=== PATIENT | male | born 1950 | race African-American/Black ===

== ENCOUNTER 2020-02-05 13:43 | Inpatient (IN) | payer MEDICARE ==
--- NOTE | 2020-02-05 14:14 | ED ---
General Adult HPI - General Chief complaint: Upper Respiratory Infection Stated complaint: Pneumonia Time Seen by Provider: 02/05/20 13:45 Source: patient, RN/MD, RN notes reviewed Mode of arrival: ambulatory Limitations: no limitations - History of Present Illness Initial comments: Patient is a pleasant 69-year-old male presenting to the emergency Department as a transfer from [facility]. [place]. Patient had complained of cough and fever and diagnosed with bilateral interstitial pneumonia. Patient states he lives in [place]. Patient states he was driving some place else in [place] and does not know how he ended up in [place]. Patient denies feeling confused. Patient does admit to having cough. Patient also thinks he may have had a fever earlier in the day. No recent travel otherwise. Patient does have leg swelling with history of CHF. Patient was given IV doxycycline and ceftriaxone as well as dexamethasone. Patient was isolated there. They had originally ordered the Covid- 19 test however did not run at because patient was leaving their facility. - Related Data Allergies Allergy/AdvReac Type Severity Reaction Status Date / Time No Known Allergies Allergy Verified 02/05/20 14:00 Review of Systems ROS Statement: Those systems with pertinent positive or pertinent negative responses have been documented in the HPI. ROS Other: All systems not noted in ROS Statement are negative. Constitutional: Reports: as per HPI, fever Eyes: Denies: eye pain ENT: Denies: ear pain Respiratory: Reports: cough. Denies: dyspnea Cardiovascular: Reports: edema. Denies: chest pain Endocrine: Denies: fatigue Genitourinary: Denies: dysuria Musculoskeletal: Denies: back pain Skin: Denies: rash Neurological: Denies: weakness Past Medical History Past Medical History: Coronary Artery Disease (CAD), Heart Failure, Hyperlipidemia, Hypertension Additional Past Medical History / Comment(s): DVT with filter History of Any Multi-Drug Resistant Organisms: None Reported Past Surgical History: Orthopedic Surgery Additional Past Surgical History / Comment(s): IVC filter for blood clots, foot surg Past Psychological History: No Psychological Hx Reported Smoking Status: Former smoker Past Alcohol Use History: None Reported Past Drug Use History: None Reported General Exam Limitations: no limitations General appearance: alert, in no apparent distress Head exam: Present: normocephalic Eye exam: Present: normal appearance, PERRL Neck exam: Present: normal inspection Respiratory exam: Present: rhonchi Cardiovascular Exam: Present: regular rate, normal rhythm GI/Abdominal exam: Present: soft. Absent: tenderness Extremities exam: Present: pedal edema. Absent: calf tenderness Neurological exam: Present: alert, oriented X3, CN II-XII intact. Absent: motor sensory deficit Psychiatric exam: Present: normal affect, normal mood Skin exam: Present: normal color Course Vital Signs 02/05/20 13:47 Temperature 97.8 F Pulse Rate 82 Respiratory 18 Rate Blood Pressure 115/58 O2 Sat by Pulse 96 Oximetry EKG Findings - EKG Comments: EKG Findings:: Sinus rhythm at 87. PVC present. For screening AV block MN of 224. QRS 110. QT 376. QTc 452. Left axis. Septal Q waves. No acute ST change. Medical Decision Making - Medical Decision Making Patient was updated on results and plan. Case was discussed with Dr. Hudson who is aware of concerns and will admit. He is covering for hospital call. - Lab Data Result diagrams: 02/05/20 14:09 02/05/20 14:09 Lab Results 02/05/20 02/05/20 02/05/20 Range/Units 14:09 14:09 14:09 WBC 7.5 (3.8-10.6) k/uL RBC 4.14 L (4.30-5.90) m/uL Hgb 10.0 L (13.0-17.5) gm/dL Hct 33.3 L (39.0-53.0) % MCV 80.5 (80.0-100.0) fL MCH 24.2 L (25.0-35.0) pg MCHC 30.0 L (31.0-37.0) g/dL RDW 20.3 H (11.5-15.5) % Plt Count 213 (150-450) k/uL Neutrophils % 79 % Lymphocytes % 11 % Monocytes % 5 % Eosinophils % 4 % Basophils % 0 % Neutrophils # 5.9 (1.3-7.7) k/uL Lymphocytes # 0.8 L (1.0-4.8) k/uL Monocytes # 0.4 (0-1.0) k/uL Eosinophils # 0.3 (0-0.7) k/uL Basophils # 0.0 (0-0.2) k/uL Hypochromasia Marked Anisocytosis Moderate Microcytosis Slight PT 10.4 (9.0-12.0) sec INR 1.0 (<1.2) APTT 26.3 (22.0-30.0) sec Sodium 140 (137-145) mmol/L Potassium 4.7 (3.5-5.1) mmol/L Chloride 109 H (98-107) mmol/L Carbon Dioxide 25 (22-30) mmol/L Anion Gap 6 mmol/L BUN 48 H (9-20) mg/dL Creatinine 1.45 H (0.66-1.25) mg/dL Est GFR (CKD-EPI)AfAm 56 (>60 ml/min/1.73 sqM) Est GFR (CKD-EPI)NonAf 48 (>60 ml/min/1.73 sqM) Glucose 84 (74-99) mg/dL Plasma Lactic Acid Simone (0.7-2.0) mmol/L Calcium 8.7 (8.4-10.2) mg/dL Total Bilirubin 0.5 (0.2-1.3) mg/dL AST 24 (17-59) U/L ALT 21 (4-49) U/L Alkaline Phosphatase 154 H (38-126) U/L Creatine Kinase 53 L (55-170) U/L Troponin I (0.000-0.034) ng/mL NT-Pro-B Natriuret Pep pg/mL Total Protein 6.0 L (6.3-8.2) g/dL Albumin 3.1 L (3.5-5.0) g/dL Influenza Type A RNA (Not Detectd) Influenza Type B (PCR) (Not Detectd) 02/05/20 02/05/20 02/05/20 Range/Units 14:09 14:09 14:09 WBC (3.8-10.6) k/uL RBC (4.30-5.90) m/uL Hgb (13.0-17.5) gm/dL Hct (39.0-53.0) % MCV (80.0-100.0) fL MCH (25.0-35.0) pg MCHC (31.0-37.0) g/dL RDW (11.5-15.5) % Plt Count (150-450) k/uL Neutrophils % % Lymphocytes % % Monocytes % % Eosinophils % % Basophils % % Neutrophils # (1.3-7.7) k/uL Lymphocytes # (1.0-4.8) k/uL Monocytes # (0-1.0) k/uL Eosinophils # (0-0.7) k/uL Basophils # (0-0.2) k/uL Hypochromasia Anisocytosis Microcytosis PT (9.0-12.0) sec INR (<1.2) APTT (22.0-30.0) sec Sodium (137-145) mmol/L Potassium (3.5-5.1) mmol/L Chloride (98-107) mmol/L Carbon Dioxide (22-30) mmol/L Anion Gap mmol/L BUN (9-20) mg/dL Creatinine (0.66-1.25) mg/dL Est GFR (CKD-EPI)AfAm (>60 ml/min/1.73 sqM) Est GFR (CKD-EPI)NonAf (>60 ml/min/1.73 sqM) Glucose (74-99) mg/dL Plasma Lactic Acid Simone 1.2 (0.7-2.0) mmol/L Calcium (8.4-10.2) mg/dL Total Bilirubin (0.2-1.3) mg/dL AST (17-59) U/L ALT (4-49) U/L Alkaline Phosphatase (38-126) U/L Creatine Kinase (55-170) U/L Troponin I <0.012 (0.000-0.034) ng/mL NT-Pro-B Natriuret Pep 40724 pg/mL Total Protein (6.3-8.2) g/dL Albumin (3.5-5.0) g/dL Influenza Type A RNA (Not Detectd) Influenza Type B (PCR) (Not Detectd) 02/05/20 Range/Units 14:09 WBC (3.8-10.6) k/uL RBC (4.30-5.90) m/uL Hgb (13.0-17.5) gm/dL Hct (39.0-53.0) % MCV (80.0-100.0) fL MCH (25.0-35.0) pg MCHC (31.0-37.0) g/dL RDW (11.5-15.5) % Plt Count (150-450) k/uL Neutrophils % % Lymphocytes % % Monocytes % % Eosinophils % % Basophils % % Neutrophils # (1.3-7.7) k/uL Lymphocytes # (1.0-4.8) k/uL Monocytes # (0-1.0) k/uL Eosinophils # (0-0.7) k/uL Basophils # (0-0.2) k/uL Hypochromasia Anisocytosis Microcytosis PT (9.0-12.0) sec INR (<1.2) APTT (22.0-30.0) sec Sodium (137-145) mmol/L Potassium (3.5-5.1) mmol/L Chloride (98-107) mmol/L Carbon Dioxide (22-30) mmol/L Anion Gap mmol/L BUN (9-20) mg/dL Creatinine (0.66-1.25) mg/dL Est GFR (CKD-EPI)AfAm (>60 ml/min/1.73 sqM) Est GFR (CKD-EPI)NonAf (>60 ml/min/1.73 sqM) Glucose (74-99) mg/dL Plasma Lactic Acid Simone (0.7-2.0) mmol/L Calcium (8.4-10.2) mg/dL Total Bilirubin (0.2-1.3) mg/dL AST (17-59) U/L ALT (4-49) U/L Alkaline Phosphatase (38-126) U/L Creatine Kinase (55-170) U/L Troponin I (0.000-0.034) ng/mL NT-Pro-B Natriuret Pep pg/mL Total Protein (6.3-8.2) g/dL Albumin (3.5-5.0) g/dL Influenza Type A RNA Not Detected (Not Detectd) Influenza Type B (PCR) Not Detected (Not Detectd) - Radiology Data Radiology results: report reviewed (Computed tomography scan of the brain shows some abnormal widening of the [place] interval, correlate to exclude trauma. Local mass effect on the cervical medullary junction), image reviewed (Chest x-ray concerning for numerous multifocal interstitial nebular past days.) Disposition Clinical Impression: Pulmonary infiltrates Disposition: ADMITTED IP TO THIS HOSP Is patient prescribed a controlled substance at d/c from ED?: No Referrals: Nonstaff,Physician [Primary Care Provider] - 1-2 days Decision Time: 16:01
[2020-02-05 14:33] LABS: Anisocytosis Moderate; Basophils % (A) 0 %; Eosinophils # (A) 0.3 k/uL (0-0.7); Eosinophils % (A) 4 %; HCT 33.3 % (39.0-53.0); Hypochromasia Marked; Lymphocytes # (A) 0.8 k/uL (1.0-4.8); Lymphocytes % (A) 11 %; MCH 24.2 pg (25.0-35.0); MCV 80.5 fL (80.0-100.0); Mean Platelet Volume 7.8; Microcytosis Slight; Monocytes # (A) 0.4 k/uL (0-1.0); Monocytes % (A) 5 %; Neutrophils # (A) 5.9 k/uL (1.3-7.7); Neutrophils % (A) 79 %; Platelet Count 213 k/uL (150-450); RBC 4.14 m/uL (4.30-5.90); RDW 20.3 % (11.5-15.5); WBC 7.5 k/uL (3.8-10.6)
[2020-02-05 14:44] LABS: Albumin 3.1 g/dL (3.5-5.0); Calcium 8.7 mg/dL (8.4-10.2); Potassium 4.7 mmol/L (3.5-5.1); Total Bilirubin 0.5 mg/dL (0.2-1.3)
[2020-02-05 14:47] LABS: Partial Thromboplastin Time 26.3 sec (22.0-30.0); Prothrombin Time 10.4 sec (9.0-12.0)
--- NOTE | 2020-02-05 15:32 | XR ---
EXAMINATION TYPE: XR chest 2V DATE OF EXAM: 02/05/2020 COMPARISON: NONE HISTORY: Cough, congestion, and fever TECHNIQUE: Frontal and lateral views of the chest are obtained. FINDINGS: Numerous bilateral patchy opacities are seen throughout. Diffuse interstitial prominence b ilaterally. Cardiomediastinal silhouette is enlarged. Diffuse osseous demineralization. No sizable pl eural effusion. IMPRESSION: Numerous multifocal interstitial and alveolar opacities. Consider multifocal pneumonia, pulmonary hemorrhage, or ARDS. If no interval clearing on follow-up subsequent exams and after treatm ent CT would be recommended to ensure no underlying nodule.
--- NOTE | 2020-02-05 15:38 | CT ---
EXAMINATION TYPE: CT brain wo con DATE OF EXAM: 02/05/2020 COMPARISON: None HISTORY: Altered mental status. CT DLP: 1231.4 mGycm Automated exposure control for dose reduction was used. Head CT performed using departmental protocol FINDINGS: There is abnormal widening of the atlantodens interval, correlate to exclude trauma. There is local m ass effect on the cervical medullary junction region, proximal cervical cord. Inflammatory changes ar e present within the right maxillary sinus. There is cortical atrophy. Cerebral vascular calcificatio ns are present. There is no hemorrhage or hydrocephalus. Encephalomalacia is present in the watershed regions of the posterior parietal lobes left greater than right. Periventricular white matter shows patchy low attenuation. The calvarium is intact, mild inflammatory change in the ethmoid air cells. O rbits show symmetric appearance. Question left frontal cephalohematoma. IMPRESSION: ABNORMAL WIDENING OF THE LATERAL DENS INTERVAL, THERE IS MASS EFFECT ON THE PROXIMAL CERVICAL CORD JU ST DISTAL TO THE CERVICAL MEDULLARY JUNCTION. CHRONIC SMALL VESSEL ISCHEMIC CHANGES, AGE RELATED ATRO PHY. ADDITIONAL FINDINGS ABOVE.
[2020-02-05] MEDS ORDERED: PIPERACILLIN-TAZOBACTAM 3.375 GM in SODIUM CHLORIDE 0.9% 100 ML IVPB STA (16:01)
[2020-02-05] MEDS ORDERED: LEVOFLOXACIN 750MG-D5W PMX 750 MG in DEXTROSE/WATER 1 150ML.BAG IVPB STA (16:01)
[2020-02-05] MEDS ORDERED: PNEUMONIA PROTOCOL UTILIZED 1 EACH MISC PO PRN (16:01)
[2020-02-05 16:19] LABS: Appearance,Urine Clear (Clear); Bilirubin,Urine Negative (Negative); Blood,Urine Negative (Negative); Color,Urine Yellow; Glucose,Urine (UA) Negative (Negative); Ketones,Urine Negative (Negative); Leukocyte Esterase,Urine Negative (Negative); Nitrite,Urine Negative (Negative); Protein,Urine Negative (Negative); Urobilinogen,Urine <2.0 mg/dL (<2.0)
--- NOTE | 2020-02-05 17:50 | P.CNNES ---
History of Present Illness Consult date: 02/05/20 Requesting physician: Pancho Maradiaga Reason for Consult: Altered mental status History of Present Illness: Patient is a 69-year-old male, who was brought to the hospital for altered mental status. Patient apparently lives in [place]. He states that he made a wrong turn, ended up coming to [place], past the [place] border, was taken to hospital, and then transferred back to [facility] and was admitted to [facility]. Neurology was consulted for altered mental status. Patient underwent Computed tomography scan of the head showed abnormal widening of the lateral dense interval, there is mass effect on the proximal cervical cord just distal to the cervical medullary junction. Chronic small vessel ischemic changes, age-related atrophy. Inflammatory changes are present within the right maxillary sinus. Encephalomalacia is present in the watershed region of the posterior parietal lobes left greater than right. Question left frontal cephalohematoma. EKG shows sinus rhythm with first-degree AV block with occasional PVCs and premature atrial complexes. Possible left atrial enlargement. Septal infarct, age undetermined. Chest x-ray showed numerous multifocal interstitial and alveolar opacities. Consider multifocal pneumonia, pulmonary hemorrhage, ARDS. Patient's CBC with WBC 7.5, hemoglobin 10.0, platelets were and 13. PT/PTT normal. Chem-7 with normal electrolytes, BUN 48, creatinine 1.45. Liver functions normal. CPK 53. UA negative, influenza screen negative. Patient had originally undergone Covid-19 testing in [place], however the test was not ran because patient was leaving their facility. Patient denies any numbness tingling, focal weakness. He denies any falls. Denies any neck pain although states that since he has been in the hospital, is laying in odd position, the neck is hurting. Patient denies any history of strokes/CVA. Patient states that he was recently admitted to [facility] about a week ago. They thought he may have a heart failure. Denies headache. He states that he does have difficulty breathing for the last 2 days. Patient denies hypertension, diabetes. He smoked 1 pack per day for 10 years, quit 10 years ago. Denies any alcohol. Patient states that he uses a cane for ambulation for the last 2-3 years. 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 Patient states he has 2 children. Patient states that he has been taking aspiri n 81 mg daily since his admission to the [facility] a week ago. Review of Systems Patient admits to having cough. Patient was diagnosed with bilateral interstit ial pneumonia. Patient has lack swelling with history of CHF. Past Medical History Past Medical History: Coronary Artery Disease (CAD), Heart Failure, Hyperlip idemia, Hypertension Additional Past Medical History / Comment(s): DVT with filter History of Any Multi-Drug Resistant Organisms: None Reported Past Surgical History: Orthopedic Surgery Additional Past Surgical History / Comment(s): IVC filter for blood clots, foot surg Past Psychological History: No Psychological Hx Reported Smoking Status: Former smoker Past Alcohol Use History: None Reported Past Drug Use History: None Reported - Past Family History Mother Family Medical History: Myocardial Infarction (IA) Medications and Allergies Home Medications Medication Instructions Recorded Confirmed Type ALPRAZolam [Xanax] 0.5 mg PO HS PRN 02/05/20 02/05/20 History Albuterol Sulfate [Albuterol 2 puff PO RT-Q4H PRN 02/05/20 02/05/20 History Sulfate Hfa] Allopurinol [Zyloprim] 300 mg PO DAILY 02/05/20 02/05/20 History Aspirin EC [Ecotrin Low Dose] 81 mg PO DAILY 02/05/20 02/05/20 History Atorvastatin [Lipitor] 40 mg PO HS 02/05/20 02/05/20 History Azelastine HCl 1 spray EA NOSTRIL BID 02/05/20 02/05/20 History Furosemide [Lasix] 20 mg PO BID 02/05/20 02/05/20 History HYDROcodone/APAP 10-325MG [[place] 1 tab PO BID PRN 02/05/20 02/05/20 History 10-325] Ipratropium/Albuterol Sulfate 1 puff INHALATION RT-TID 02/05/20 02/05/20 History [Combivent Respimat Inhaler] Metoprolol Succinate (ER) [Toprol 25 mg PO DAILY 02/05/20 02/05/20 History Xl] NIFEdipine XL [Procardia Xl] 60 mg PO DAILY 02/05/20 02/05/20 History Rivaroxaban [Xarelto] 15 mg PO DAILY 02/05/20 02/05/20 History Tamsulosin [Flomax] 0.4 mg PO [id number] 02/05/20 02/05/20 History Allergies Allergy/AdvReac Type Severity Reaction Status Date / Time No Known Allergies Allergy Verified 02/05/20 16:10 Physical Examination - Vital Signs Vital Signs: Vital Signs Temp Pulse Resp BP Pulse Ox 02/05/20 13:47 97.8 F 82 18 115/58 96 Intake and Output 02/05/20 02/05/20 02/05/20 06:59 14:59 22:59 Other: Weight 95.254 kg Patient is an elderly Afro-[place]i male, in no distress distress. Patient states it is February and the year is 2019 although then he corrects it to January 2020. He knows name of the current president and that he lives in [facility]. Speech and language functions are normal. Attention, concentration and fund of knowledge is slightly limited. He did provide some history as above. Patient's face is symmetric. Patient able to move all 4 extremities equally. Patient does have significant peripheral edema, chronic venous congestion changes in the legs. Examination mostly performed through looking at him through the glass window, and communicating through the cellular phone. Results - Laboratory Findings CBC and BMP: 02/06/20 05:45 02/06/20 05:45 Abnormal Lab Findings: Abnormal Labs 02/05/20 02/05/20 14:09 14:09 RBC 4.14 L Hgb 10.0 L Hct 33.3 L MCH 24.2 L MCHC 30.0 L RDW 20.3 H Lymphocytes # 0.8 L Chloride 109 H BUN 48 H Creatinine 1.45 H Alkaline Phosphatase 154 H Creatine Kinase 53 L Total Protein 6.0 L Albumin 3.1 L Assessment and Plan Assessment: * Altered mental status, possible toxic metabolic encephalopathy. 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 Rule out carotid stenosis. * Abnormal widening of the lateral dens with mass effect on the proximal cervical cord. Uncertain cause. ?RA * Abnormal chest x-ray with evidence of bilateral interstitial infiltrates. Rule out CHF versus pneumonia, or Covid-19. Influenza screen negative. * Peripheral edema. Plan: * Obtain records from [facility]. Patient may need tests as below. * Suggest carotid Doppler to rule out carotid stenosis. * 2-D echo to rule out embolic source. * Hemoglobin A1c, fasting a.m. lipid panel. B12, folate, TSH, rheumatoid factor * EEG to rule out any epileptiform activity * Patient may need MRI of the cervical spine for evaluation of abnormality in the dens, noted on CT head. * Your medical management. * Continue aspirin 81 mg daily for stroke prevention.
[2020-02-05] MEDS ORDERED: ACETAMINOPHEN TAB 325 MG TAB PO PRN (18:11)
[2020-02-05] MEDS ORDERED: NALOXONE 0.4 MG/ML 1 ML VIAL IV PRN (18:11)
[2020-02-05 18:22] LABS: Glucose,Whole Blood 93 mg/dL (75-99)
--- NOTE | 2020-02-05 18:27 | P.HPIM ---
History of Present Illness H&P Date: 02/05/20 Chief Complaint: Shortness of breath 69-year-old male with PMH of CAD, DVT with filter, heart failure, hypertension, dyslipidemia presents the ED for shortness of breath. Patient states that the shortness of breath has been ongoing for the past 2 weeks. He denies any cough. He denies any fever or chills. He denies any chest pain or palpitations. According to the ED note, he was apparently diagnosed with bilateral interstitial pneumonia in [place]. Apparently, patient lives in [place] and did not have any clue how he ended up in [place]. Patient did not mention anything about [place] during my encounter with him. Patient denies any headache, lower extremity edema, nausea or vomiting, changes in urination or bowel habits. No changes in appetite or weight. In the ED, vital signs were stable with O2 saturation in the 90s on 4 L nasal cannula. He did have intermittent tachycardia and tachypnea in the ED. CBC shows anemia with hemoglobin of 10 and lymphopenia. Coagulation panel was negative. CMP shows chloride of 109, BUN 48, creatinine 1.45, alkaline phosphatase 154, creatinine kinase 53. Troponin was less than 0.012, EKG showing sinus rhythm with first-degree AV block and PVC. BNP was 10,100 with chest x-ray showing multifocal interstitial and al veolar opacities. Brain CT shows widening of the lateral dens interval, mass effect on the proximal cervical cord? Patient is admitted for shortness of breath, multifocal pneumonia, rule out COVID-19 with neurology, pulmonology and infectious disease on consult. Review of Systems Pertinent positives and negatives as discussed in HPI, a complete review of systems was performed and all other systems are negative. All systems: negative Past Medical History Past Medical History: Coronary Artery Disease (CAD), Heart Failure, Hyperlipidemia, Hypertension Additional Past Medical History / Comment(s): DVT with filter History of Any Multi-Drug Resistant Organisms: None Reported Past Surgical History: Orthopedic Surgery Additional Past Surgical History / Comment(s): IVC filter for blood clots, foot surg Past Psychological History: No Psychological Hx Reported Smoking Status: Former smoker Past Alcohol Use History: None Reported Past Drug Use History: None Reported Medications and Allergies Home Medications Medication Instructions Recorded Confirmed Type ALPRAZolam [Xanax] 0.5 mg PO HS PRN 02/05/20 02/05/20 History Albuterol Sulfate [Albuterol 2 puff PO RT-Q4H PRN 02/05/20 02/05/20 History Sulfate Hfa] Allopurinol [Zyloprim] 300 mg PO DAILY 02/05/20 02/05/20 History Aspirin EC [Ecotrin Low Dose] 81 mg PO DAILY 02/05/20 02/05/20 History Atorvastatin [Lipitor] 40 mg PO HS 02/05/20 02/05/20 History Azelastine HCl 1 spray EA NOSTRIL BID 02/05/20 02/05/20 History Furosemide [Lasix] 20 mg PO BID 02/05/20 02/05/20 History HYDROcodone/APAP 10-325MG [[place] 1 tab PO BID PRN 02/05/20 02/05/20 History 10-325] Ipratropium/Albuterol Sulfate 1 puff INHALATION RT-TID 02/05/20 02/05/20 History [Combivent Respimat Inhaler] Metoprolol Succinate (ER) [Toprol 25 mg PO DAILY 02/05/20 02/05/20 History Xl] NIFEdipine XL [Procardia Xl] 60 mg PO DAILY 02/05/20 02/05/20 History Rivaroxaban [Xarelto] 15 mg PO DAILY 02/05/20 02/05/20 History Tamsulosin [Flomax] 0.4 mg PO AC-[id number] 02/05/20 02/05/20 History Allergies Allergy/AdvReac Type Severity Reaction Status Date / Time No Known Allergies Allergy Verified 02/05/20 16:10 Physical Exam Vitals: Vital Signs Temp Pulse Resp BP Pulse Ox 02/05/20 17:02 93 16 100/63 93 L 02/05/20 16:50 93 16 100/63 93 L 02/05/20 16:40 91 25 H 115/75 100 02/05/20 16:30 90 18 123/75 94 L 02/05/20 16:20 94 19 123/75 02/05/20 16:10 101 H 25 H 116/79 94 L 02/05/20 16:00 90 28 H 115/58 02/05/20 15:50 92 23 115/58 02/05/20 15:40 85 22 115/58 98 02/05/20 15:30 82 15 115/58 97 02/05/20 15:20 93 19 115/58 02/05/20 15:10 115/58 02/05/20 15:00 115/58 02/05/20 14:50 88 19 115/58 96 02/05/20 14:40 93 17 115/58 93 L 02/05/20 14:30 85 21 115/58 97 02/05/20 14:20 84 18 115/58 98 02/05/20 14:13 87 18 115/58 02/05/20 13:47 97.8 F 82 18 115/58 96 Intake and Output 02/05/20 02/05/20 02/05/20 06:59 14:59 22:59 Other: Weight 95.254 kg General: [non toxic], [appears ill], [appears at stated age] Derm: [warm], [dry] Head: [atraumatic], [normocephalic], [symmetric] Eyes: [EOMI], [no lid lag], [anicteric sclera] Mouth: [no lip lesion], [mucus membranes moist] Cardiovascular: [S1S2 reg], [tachycardia], [positive DP pulse bilateral], Lungs: [Decreased breath sounds bilateral], [no rhonchi, no rales] , [no accessory muscle use] Abdominal: [soft], [ nontender to palpation], [no guarding], [no appreciable organomegaly] Ext: [no gross muscle atrophy], [left lower extremity edema], [no contractures] Neuro: [ CN II-XI grossly intact], [no focal neuro deficits] Psych: [Alert], [oriented], [appropriate affect] Results CBC & Chem 7: 02/05/20 14:09 02/05/20 14:09 Labs: Abnormal Lab Results - Last 24 Hours (Table) 02/05/20 02/05/20 Range/Units 14:09 14:09 RBC 4.14 L (4.30-5.90) m/uL Hgb 10.0 L (13.0-17.5) gm/dL Hct 33.3 L (39.0-53.0) % MCH 24.2 L (25.0-35.0) pg MCHC 30.0 L (31.0-37.0) g/dL RDW 20.3 H (11.5-15.5) % Lymphocytes # 0.8 L (1.0-4.8) k/uL Chloride 109 H (98-107) mmol/L BUN 48 H (9-20) mg/dL Creatinine 1.45 H (0.66-1.25) mg/dL Alkaline Phosphatase 154 H (38-126) U/L Creatine Kinase 53 L (55-170) U/L Total Protein 6.0 L (6.3-8.2) g/dL Albumin 3.1 L (3.5-5.0) g/dL Assessment and Plan Assessment: Acute hypoxic respiratory failure likely due to pneumonia versus COVID19 Sepsis likely due to the above Acute metabolic encephalopathy likely due to the above Normocytic anemia with lymphopenia Acute kidney injury CAD COPD Hypertension History of PE with IVC filter Patient's chest x-ray shows multifocal pneumonia with alveolar opacities. There are concerns for COVID 19 infection. He is on 4 L nasal cannula saturating 90s. BNP was 10,100 with history of CHF, patient appears euvolemic. Influenza negative. Plans: Empiric treatment for community-acquired pneumonia with levofloxacin and Zosyn. Supplemental O2 per NC to maintain O2 saturation greater than 92%. Tylenol as needed for fever. Telemetry monitoring. Follow sputum cultures. Follow blood culture. Avoid NSAIDs. Follow pro-calcitonin. Follow pulmonology consultation. Follow ID consultation. Patient meets sepsis criteria care. He is tachycardic. He is tachypneic. He is lymphopenic. There is a positive source of infection on chest x-ray. Lactic acid was negative. Plans: Patient is hemodynamically stable and does not require IVF as of now. He is on levofloxacin and Zosyn for empiric treatment of community acquired pneumonia. COVID testing is pending. Management as above. CT brain showing abnormal widening of the lateral dens interval, possible mass effect on the proximal cervical cord. Patient appears alert and oriented 3 at this time. Plans: Follow neurology consultation. Fall precautions. His hemoglobin is 10 and normocytic. He is also lymphopenic. Plans: Daily CBC. Transfuse if hemoglobin less than 7. BUN 48, creatinine 1.45. Unknown baseline. Plans: We'll repeat BMP tomorrow morning. Encourage hydration by mouth. Avoid IVF for now. Avoid nephrotoxins. Plans: Continue aspirin and Lipitor. Plans: Avoid steroids. Albuterol neb as needed for shortness of breath and wheezing. Plans: Continue metoprolol and nifedipine. Monitor vitals, justifications as necessary. Plans: Continue Xarelto. DVT prophylaxis: [Xarelto] Discussed with: [Patient] Anticipated discharge: [3-4 days] Anticipated discharge place: [Home] A total of [45] minutes was spent on the care of this complex patient more than 50% of the time was spent in counseling and care coordination. Patient is admitted for anticipated greater than 48 hours for multifocal pneumonia rule out COVID19. Patient does not have a surrogate decision maker. Patient would like to be full code.
[2020-02-05 18:36] LABS: C Reactive Protein 135.4 mg/L (<10.0)
[2020-02-05] MEDS ORDERED: LORazepam 2 MG/ML INJ IV PRN (18:54)
[2020-02-05] MEDS ORDERED: LORazepam 2 MG/ML INJ IV STA (18:59)
[2020-02-05] MEDS: ASPIRIN 81 MG PO SCH (19:02)
[2020-02-05] MEDS ORDERED: ALBUTEROL NEBULIZED 2.5 MG/3 ML INHALATION PRN (19:03)
[2020-02-05] MEDS: ATORVASTATIN 40 MG TAB PO SCH (21:55)
[2020-02-05 22:57] LABS: Folate, Serum 8.8 ng/mL
[2020-02-05 23:27] LABS: Hemoglobin A1C 5.5 % (4.0-6.0)
[2020-02-06] MEDS: PIPERACILLIN-TAZOBACTAM 3.375 GM in SODIUM CHLORIDE 0.9% 100 ML IVPB SCH ×3 (01:05→16:45)
[2020-02-06] MEDS: HYDROcodone/APAP 5-325MG 1 EACH TAB PO PRN ×2 (01:06→16:44)
[2020-02-06 06:25] LABS: Anisocytosis Slight; Basophils % (A) 0 %; Eosinophils # (A) 0.3 k/uL (0-0.7); Eosinophils % (A) 4 %; HCT 33.2 % (39.0-53.0); HGB 9.9 gm/dL (13.0-17.5); Hypochromasia Marked; Lymphocytes % (A) 13 %; MCH 24.2 pg (25.0-35.0); MCHC 29.9 g/dL (31.0-37.0); MCV 81.1 fL (80.0-100.0); Mean Platelet Volume 7.7; Microcytosis Slight; Monocytes # (A) 0.5 k/uL (0-1.0); Monocytes % (A) 6 %; Neutrophils # (A) 6.1 k/uL (1.3-7.7); Neutrophils % (A) 76 %; Platelet Count 219 k/uL (150-450); RBC 4.09 m/uL (4.30-5.90); RDW 19.9 % (11.5-15.5)
[2020-02-06 06:31] LABS: Calcium 8.5 mg/dL (8.4-10.2); Magnesium 2.4 mg/dL (1.6-2.3); Potassium 4.8 mmol/L (3.5-5.1); Total Bilirubin 0.7 mg/dL (0.2-1.3)
[2020-02-06] MEDS: TAMSULOSIN 0.4 MG CAP.ER.24H PO SCH (06:31)
--- NOTE | 2020-02-06 07:15 | XR ---
EXAMINATION TYPE: XR chest 1V portable DATE OF EXAM: 02/06/2020 COMPARISON: 02/05/2020 HISTORY: Pneumonia. Shortness of breath. TECHNIQUE: Single frontal view of the chest is obtained. FINDINGS: Multifocal alveolar opacities in the right midlung, right lung base and left perihilar reg ion are seen with diffuse interstitial airspace disease. Minimal improvement of the left upper lobe a lveolar airspace disease. Trace right pleural effusion has developed. Cardiomediastinal silhouette is enlarged and rotated secondary to patient positioning. No acute osseous process. IMPRESSION: Minimal improvement in the left upper lobe alveolar airspace disease. Other multifocal a reas of alveolar and interstitial airspace disease are unchanged from the prior. Findings are concern ing for multifocal pneumonia or ARDS.
[2020-02-06] MEDS: RIVAROXABAN 15 MG TAB PO SCH (08:54)
[2020-02-06] MEDS: METOPROLOL SUCCINATE (ER) 25 MG TAB.ER.24H PO SCH (08:54)
[2020-02-06] MEDS: ASPIRIN 81 MG PO SCH (08:54)
[2020-02-06] MEDS ORDERED: ASCORBIC ACID INJ 1,500 MG in SODIUM CHLORIDE 0.9% 100 ML IVPB SCH (09:00)
[2020-02-06] MEDS ORDERED: THIAMINE 200 MG in SODIUM CHLORIDE 0.9% 100 ML IVPB SCH (09:00)
[2020-02-06 12:09] LABS: Glucose,Whole Blood 79 mg/dL (75-99)
--- NOTE | 2020-02-06 12:13 | ECHOF ---
Referral Reason:SOB MEASUREMENTS -------- HEIGHT: 190.5 cm WEIGHT: 92.1 kg BP: RVIDd: 4.1 cm (< 3.3) IVSd: 1.8 cm (0.6 - 1.1) LVIDd: 5.7 cm (3.9 - 5.3) LVPWd: 1.6 cm (0.6 - 1.1) IVSs: 2.3 cm LVIDs: 4.6 cm LVPWs: 2.0 cm LA Diam: 5.3 cm (2.7 - 3.8) LAESV Index (A-L): 42.78 ml/m Ao Diam: 4.2 cm (2.0 - 3.7) AV Cusp: 2.0 cm (1.5 - 2.6) MV EXCURSION: 14.577 mm (> 18.000) MV EF SLOPE: 104 mm/s (70 - 150) EPSS: 1.4 cm AV maxP.38 mmHg AV meanP.52 mmHg AR PHT: 423 ms RAP: 15.00 mmHg RVSP: 44.93 mmHg FINDINGS -------- Sinus rhythm. This was a technically good study. The left ventricular size is normal. There is severe concentric left ventricular hypertrophy. Ove rall left ventricular systolic function is mild-moderately impaired with, an EF between 40 - 45 %. The right ventricle is moderately enlarged. LA is severely dilated >40 ml/m2 The right atrium is normal in size. Interatrial and interventricular septum intact. There is mild aortic valve sclerosis. There is moderate aortic regurgitation. There is moderate a ortic stenosis present. Peak/mean gradient across the Aortic Valve is 47.38mmHg / 24.52mmHg. The mitral valve leaflets are mildly thickened. Mild mitral annular calcification present. Modera te mitral regurgitation is present. Moderate tricuspid regurgitation present. There is mild to moderate pulmonary hypertension. The r ight ventricular systolic pressure, as measured by Doppler, is 44.93mmHg. The pulmonic valve was not well visualized. The aortic root size is normal. There is no pericardial effusion. CONCLUSIONS -------- 1. Sinus rhythm. 2. This was a technically good study. 3. The left ventricular size is normal. 4. There is severe concentric left ventricular hypertrophy. 5. Overall left ventricular systolic function is mild-moderately impaired with, an EF between 40 - 45 %. 6. The right ventricle is moderately enlarged. 7. LA is severely dilated >40 ml/m2 8. The right atrium is normal in size. 9. Interatrial and interventricular septum intact. 10. There is mild aortic valve sclerosis. 11. There is moderate aortic regurgitation. 12. There is moderate aortic stenosis present. 13. Peak/mean gradient across the Aortic Valve is 47.38mmHg / 24.52mmHg. 14. The mitral valve leaflets are mildly thickened. 15. Mild mitral annular calcification present. 16. Moderate mitral regurgitation is present. 17. Moderate tricuspid regurgitation present. 18. There is mild to moderate pulmonary hypertension. 19. The right ventricular systolic pressure, as measured by Doppler, is 44.93mmHg. 20. The pulmonic valve was not well visualized. 21. The aortic root size is normal. 22. There is no pericardial effusion. TIER LIFT OPERATOR: Cherelle Mijares RDCS
[2020-02-06] MEDS ORDERED: VANCOMYCIN IV PER PHARMACY 1 EACH MISC MISCELLANE PRN (12:55)
[2020-02-06 13:23] LABS: Glucose,Whole Blood 129 mg/dL (75-99)
--- NOTE | 2020-02-06 13:32 | P.PN ---
Subjective Progress Note Date: 02/06/20 Patient laying comfortably in the bed. Offers no new complaints. Still appears short of breath. No new focal symptoms. Objective - Vital Signs Vital signs: Vital Signs Temp 98.6 F 02/06/20 11:27 Pulse 105 H 02/06/20 11:27 Resp 22 02/06/20 11:27 BP 116/58 02/06/20 11:27 Pulse Ox 93 L 02/06/20 11:27 Intake & Output 02/05/20 02/06/20 02/06/20 18:59 06:59 18:59 Intake Total 240 Output Total 450 100 Balance -450 140 Weight 95.254 kg 92.4 kg Intake: Oral 240 Output: Urine 450 100 Other: Voiding Method Toilet # Voids 1 1 # Bowel Movements 1 - Exam No change. More alert and awake. - Labs CBC & Chem 7: 02/07/20 05:47 02/09/20 05:30 Labs: Abnormal Lab Results - Last 24 Hours (Table) 02/05/20 02/05/20 02/05/20 Range/Units 14:09 14:09 14:09 RBC 4.14 L (4.30-5.90) m/uL Hgb 10.0 L (13.0-17.5) gm/dL Hct 33.3 L (39.0-53.0) % MCH 24.2 L (25.0-35.0) pg MCHC 30.0 L (31.0-37.0) g/dL RDW 20.3 H (11.5-15.5) % Lymphocytes # 0.8 L (1.0-4.8) k/uL Chloride 109 H (98-107) mmol/L BUN 48 H (9-20) mg/dL Creatinine 1.45 H (0.66-1.25) mg/dL POC Glucose (mg/dL) (75-99) mg/dL Magnesium (1.6-2.3) mg/dL Alkaline Phosphatase 154 H (38-126) U/L Creatine Kinase 53 L (55-170) U/L C-Reactive Protein 135.4 H (<10.0) mg/L Total Protein 6.0 L (6.3-8.2) g/dL Albumin 3.1 L (3.5-5.0) g/dL Procalcitonin (0.02-0.09) ng/mL Rheumatoid Factor (0-15) IU/mL 02/05/20 02/05/20 02/06/20 Range/Units 14:09 14:09 05:45 RBC 4.09 L (4.30-5.90) m/uL Hgb 9.9 L (13.0-17.5) gm/dL Hct 33.2 L (39.0-53.0) % MCH 24.2 L (25.0-35.0) pg MCHC 29.9 L (31.0-37.0) g/dL RDW 19.9 H (11.5-15.5) % Lymphocytes # (1.0-4.8) k/uL Chloride (98-107) mmol/L BUN (9-20) mg/dL Creatinine (0.66-1.25) mg/dL POC Glucose (mg/dL) (75-99) mg/dL Magnesium (1.6-2.3) mg/dL Alkaline Phosphatase (38-126) U/L Creatine Kinase (55-170) U/L C-Reactive Protein (<10.0) mg/L Total Protein (6.3-8.2) g/dL Albumin (3.5-5.0) g/dL Procalcitonin 0.12 H (0.02-0.09) ng/mL Rheumatoid Factor 72 H (0-15) IU/mL 02/06/20 02/06/20 Range/Units 05:45 13:22 RBC (4.30-5.90) m/uL Hgb (13.0-17.5) gm/dL Hct (39.0-53.0) % MCH (25.0-35.0) pg MCHC (31.0-37.0) g/dL RDW (11.5-15.5) % Lymphocytes # (1.0-4.8) k/uL Chloride 110 H (98-107) mmol/L BUN 41 H (9-20) mg/dL Creatinine 1.50 H (0.66-1.25) mg/dL POC Glucose (mg/dL) 129 H (75-99) mg/dL Magnesium 2.4 H (1.6-2.3) mg/dL Alkaline Phosphatase 155 H (38-126) U/L Creatine Kinase (55-170) U/L C-Reactive Protein (<10.0) mg/L Total Protein 6.0 L (6.3-8.2) g/dL Albumin 3.0 L (3.5-5.0) g/dL Procalcitonin (0.02-0.09) ng/mL Rheumatoid Factor (0-15) IU/mL Assessment and Plan Assessment: * Altered mental status, possible toxic metabolic encephalopathy. 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 Rule out carotid stenosis. * Abnormal widening of the lateral dens with mass effect on the proximal cervical cord. Probably due to rheumatoid arthritis. * Abnormal chest x-ray with evidence of bilateral interstitial infiltrates. Rule out CHF versus pneumonia, or Covid-19. Influenza screen negative. * Peripheral edema. Plan: * Awaiting outside records from [facility]. Patient may need tests as below. * Suggest carotid Doppler to rule out carotid stenosis. * 2-D echo to rule out embolic source. * Hemoglobin A1c 5.5, fasting a.m. lipid panel pending. B12 283, folate 8.8, TSH 2.45, rheumatoid factor +72, progress to tone and elevated 0.12. Pro-BNP elevated 10,100 * May need an EEG to rule out any epileptiform activity. Await outside records. * Patient's rheumatoid factor is elevated. Abnormality noted on the dens, likely related to rheumatoid arthritis. Would await further testing, until underlying cardio-pulmonary condition has been settled. * Your medical management. * Continue aspirin 81 mg daily for stroke prevention. * Dr. Adams covering on the weekend.
[2020-02-06] MEDS: FUROSEMIDE 10 MG/ML 4 ML VIAL IV SCH ×2 (13:35→22:38)
--- NOTE | 2020-02-06 14:52 | P.CNPUL ---
History of Present Illness Consult date: 02/06/20 Requesting physician: Ariella Marroquin Reason for consult: dyspnea, cough, hypoxemia, abnormal CXR/CT History of present illness: 69-year-old -Portuguese male patient who resides in [facility], who presented to the emergency department after ending up in [place] and taking a wrong turn. Patient states he was in the [facility] for approximately 1- 2 hours, 7 shortness of breath, and cough, he was placed in isolation there, was given doxycycline and ceftriaxone and dexamethasone. COVID 19 testing was ordered however not run because the patient was leaving their facility. Patient is somewhat of a poor historian, his timeline of events is quite disorganized. His baseline mentation is not known. He states last week he was hospitalized for 4 days at [facility] for shortness of breath, and swelling in his lower extremities. He states he had a heart catheterization during that stay, the results are unknown. He is not sure whether he had pneumonia, thinks that someone told him he had acute congestive heart failure. He was discharged home on Sunday02/01/2020, and he followed up with his PCP on 02/02/2020, he was severely short of breath, and he states his pulse ox was extremely low on room air and his PCP was quite upset that he was discharged home prematurely and without oxygen. He was provided with oxygen, he was sent home. He lives with his brother, he is retired. He is , has adult children. He denies any recent travel other than to [place], denies any contacts with any COVID 19 positive people. He states he quit smoking several years ago, did smoke a pack a day for 10 years, not normally on oxygen. Other medical history includes hypertension, hyperlipidemia, coronary artery disease, history of DVT with filter placement. Patient denied any fever or chills, he is coughing up purulent phlegm but no hemoptysis, denied any chest pain, denied any palpitations, lightheadedness or dizziness. He did note increased swelling in his bilateral lower extremities since discharge from the hospital. Chest x-ray completed in the emergency department showed numerous multifocal interstitial and alveolar opacities consideration to multifocal pneumonia, pulmonary hemorrhage or ARDS. 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 His EKG showed sinus rhythm with first-degree AV block possibility of left atrial enlargement, and evidence of septal infarct of undetermined age. Admission lab work showed white blood cell, 7.5, hemoglobin of 10.0, platelet count of 213, lymphocytes of 0.8, coagulation profile was within normal limits, sodium was 140, potassium is 4.7, chloride was 109, CO2 is 25, BUN was 48, creatinine is 1.45, patient states he does have chronic kidney disease, and we are not sure of his baseline GFR. Troponin was negative at 0.012, proBNP was [id number], pro-calcitonin came back at 0.12 only mildly elevated, CRP was 135, urinalysis was negative, rheumatoid factor was 72, influenza screen was negative. She was started on Levaquin and Zosyn, and we're consulted for evaluation of his abnormal chest x-ray showing multifocal airspace disease. Review of Systems All systems: negative Constitutional: Denies chills, Denies fever Eyes: denies blurred vision, denies pain Ears, nose, mouth and throat: Denies headache, Denies sore throat Cardiovascular: Denies chest pain, Denies shortness of breath Respiratory: Reports congestion, Reports cough with sputum, Reports dyspnea, Reports home oxygen, Denies cough Gastrointestinal: Denies abdominal pain, Denies diarrhea, Denies nausea, Denies vomiting Musculoskeletal: Denies myalgias Musculoskeletal: bilateral: ankle swelling, foot swelling Integumentary: Denies pruritus, Denies rash Neurological: Reports change in mentation, Denies numbness, Denies weakness Psychiatric: Denies anxiety, Denies depression Endocrine: Denies fatigue, Denies weight change Past Medical History Past Medical History: Coronary Artery Disease (CAD), Heart Failure, Hyperlipidemia, Hypertension Additional Past Medical History / Comment(s): DVT with filter History of Any Multi-Drug Resistant Organisms: None Reported Past Surgical History: Orthopedic Surgery Additional Past Surgical History / Comment(s): IVC filter for blood clots, foot surg Past Anesthesia/Blood Transfusion Reactions: No Reported Reaction Past Psychological History: No Psychological Hx Reported Smoking Status: Former smoker Past Alcohol Use History: None Reported Past Drug Use History: None Reported - Past Family History Mother Family Medical History: Myocardial Infarction (NC) Medications and Allergies Home Medications Medication Instructions Recorded Confirmed Type ALPRAZolam [Xanax] 0.5 mg PO HS PRN 02/05/20 02/05/20 History Albuterol Sulfate [Albuterol 2 puff PO RT-Q4H PRN 02/05/20 02/05/20 History Sulfate Hfa] Allopurinol [Zyloprim] 300 mg PO DAILY 02/05/20 02/05/20 History Aspirin EC [Ecotrin Low Dose] 81 mg PO DAILY 02/05/20 02/05/20 History Atorvastatin [Lipitor] 40 mg PO HS 02/05/20 02/05/20 History Azelastine HCl 1 spray EA NOSTRIL BID 02/05/20 02/05/20 History Furosemide [Lasix] 20 mg PO BID 02/05/20 02/05/20 History HYDROcodone/APAP 10-325MG [[place] 1 tab PO BID PRN 02/05/20 02/05/20 History 10-325] Ipratropium/Albuterol Sulfate 1 puff INHALATION RT-TID 02/05/20 02/05/20 History [Combivent Respimat Inhaler] Metoprolol Succinate (ER) [Toprol 25 mg PO DAILY 02/05/20 02/05/20 History Xl] NIFEdipine XL [Procardia Xl] 60 mg PO DAILY 02/05/20 02/05/20 History Rivaroxaban [Xarelto] 15 mg PO DAILY 02/05/20 02/05/20 History Tamsulosin [Flomax] 0.4 mg PO AC-BRKFST 02/05/20 02/05/20 History Allergies Allergy/AdvReac Type Severity Reaction Status Date / Time No Known Allergies Allergy Verified 02/05/20 16:10 Physical Exam Vitals: Vital Signs Temp Pulse Pulse Resp BP BP Pulse Ox 02/06/20 11:27 98.6 F 105 H 22 116/58 93 L 02/06/20 08:15 98 02/06/20 08:00 99.4 F 98 22 121/56 93 L 02/06/20 04:00 98.4 F 95 20 98/71 98 02/06/20 03:53 95 24 02/06/20 00:00 100.0 F H 95 24 138/58 100 02/05/20 20:00 98.0 F 90 24 115/64 99 02/05/20 18:15 97.8 F 93 16 100/63 93 L 02/05/20 17:02 93 16 100/63 93 L 02/05/20 16:50 93 16 100/63 93 L 02/05/20 16:40 91 25 H 115/75 100 02/05/20 16:30 90 18 123/75 94 L 02/05/20 16:28 98.1 F 98 24 107/58 90 L 02/05/20 16:20 94 19 123/75 02/05/20 16:10 101 H 25 H 116/79 94 L 02/05/20 16:00 90 28 H 115/58 02/05/20 15:50 92 23 115/58 02/05/20 15:40 85 22 115/58 98 02/05/20 15:30 82 15 115/58 97 02/05/20 15:20 93 19 115/58 02/05/20 15:10 115/58 02/05/20 15:00 115/58 02/05/20 14:50 88 19 115/58 96 02/05/20 14:40 93 17 115/58 93 L 02/05/20 14:30 85 21 115/58 97 02/05/20 14:20 84 18 115/58 98 02/05/20 14:13 87 18 115/58 02/05/20 13:47 97.8 F 82 18 115/58 96 Intake and Output 02/05/20 02/06/20 02/06/20 22:59 06:59 14:59 Intake Total 240 Output Total 450 100 Balance -450 140 Intake: Oral 240 Output: Urine 450 100 Other: Voiding Method Toilet Toilet # Voids 1 1 # Bowel Movements 1 Weight 95.254 kg 92.4 kg GENERAL EXAM: Alert, very pleasant, thin, 69-year-old -Portuguese male on 3 L of oxygen with a pulse ox of 93%, mild to moderate dyspnea with conversation, frequent congested productive cough with large amounts of purulent sputum comfortable in no apparent distress. HEAD: Normocephalic/atraumatic. EYES: Normal reaction of pupils, equal size. Conjunctiva pink, sclera white. NOSE: Clear with pink turbinates. THROAT: No erythema or exudates. NECK: No masses, no JVD, no thyroid enlargement, no adenopathy. CHEST: No chest wall deformity. Symmetrical expansion. LUNGS: Equal air entry with diffuse crackles and bilateral mid to lower lobes CVS: Regular rate and rhythm, normal S1 and S2, no gallops, no murmurs, no rubs ABDOMEN: Soft, nontender. No hepatosplenomegaly, normal bowel sounds, no guarding or rigidity. EXTREMITIES: No clubbing, 1-2+ lower extremity edema, no cyanosis, 2+ pulses and upper and lower extremities. MUSCULOSKELETAL: Muscle strength and tone normal. SPINE: No scoliosis or deformity SKIN: No rashes CENTRAL NERVOUS SYSTEM: Alert and oriented -2, person, place. No focal deficits, tone is normal in all 4 extremities. Patient thought the month was 2019, then he thought it was February, knew the president. He passed the CAM-ICU score, with 2 mistakes on the inattention, and one mistake on the disorganized thinking portion of the test. PSYCHIATRIC: Alert and oriented -2 Appropriate affect. Intact judgment and insight. Results - Laboratory Findings CBC and BMP: 02/06/20 05:45 02/06/20 05:45 PT/INR, D-dimer PT 10.4 sec (9.0-12.0) 02/05/20 14:09 INR 1.0 (<1.2) 02/05/20 14:09 Abnormal lab findings: Abnormal Labs 02/05/20 02/05/20 02/05/20 14:09 14:09 14:09 RBC 4.14 L Hgb 10.0 L Hct 33.3 L MCH 24.2 L MCHC 30.0 L RDW 20.3 H Lymphocytes # 0.8 L Chloride 109 H BUN 48 H Creatinine 1.45 H Magnesium Alkaline Phosphatase 154 H Creatine Kinase 53 L C-Reactive Protein 135.4 H Total Protein 6.0 L Albumin 3.1 L Procalcitonin Rheumatoid Factor 02/05/20 02/05/20 02/06/20 14:09 14:09 05:45 RBC 4.09 L Hgb 9.9 L Hct 33.2 L MCH 24.2 L MCHC 29.9 L RDW 19.9 H Lymphocytes # Chloride BUN Creatinine Magnesium Alkaline Phosphatase Creatine Kinase C-Reactive Protein Total Protein Albumin Procalcitonin 0.12 H Rheumatoid Factor 72 H 02/06/20 05:45 RBC Hgb Hct MCH MCHC RDW Lymphocytes # Chloride 110 H BUN 41 H Creatinine 1.50 H Magnesium 2.4 H Alkaline Phosphatase 155 H Creatine Kinase C-Reactive Protein Total Protein 6.0 L Albumin 3.0 L Procalcitonin Rheumatoid Factor - Diagnostic Findings Chest x-ray: report reviewed, image reviewed Additional studies: EKG, echocardiogram reviewed Assessment and Plan Plan: Assessment: #1. Acute exacerbation of systolic congestive heart failure, chest x-ray showed mild to moderate impairment of the left ventricular systolic function with an EF of 40-45%, severe concentric left ventricular hypertrophy, mild aortic valve sclerosis, moderate aortic regurgitation, moderate aortic stenosis, moderate MR, moderate TR, [id number] pulmonary hypertension with right-sided pressures of 44.9 mmHg. And there was severe enlargement of the left atrium #2. Possible healthcare acquired pneumonia, in view of recent hospitalization at [facility]. Chest x-ray showed numerous multifocal interstitial and alveolar opacities, with consideration for multifocal pneumonia, pulmonary hemorrhage or ARDS. Pro-calcitonin came back at 0.12, slightly elevated, patient has been afebrile, however he is producing large amounts of purulent sputum. #3. Recent hospitalization at [facility], according to the patient he was discharged on 02/01/2020, we'll try to obtain records #4. Altered mental status and confusion, patient has been evaluated by neurology, brain CT showed abnormal widening of the lateral Raoul interval, and mass effect on the proximal cervical cord. Neurology tried to obtain records from [facility] before proceeding with carotid Dopplers and MRI of the brain #5. Chronic kidney disease, baseline GFR is unknown #6. Pending test for COVID 19, in view of patient's symptoms of cough and shortness of breath, but no recent history of travel or exposure to COVID 19 positive people #7. Coronary artery disease #8. Hypertension #9. Hyperlipidemia #10. History of DVT with placement of IVC filter, and oral anticoagulation with Xarelto #11. Former smoker, in remission for many years, smoked a pack a day for 10 years Plan: Continue with Levaquin and Zosyn, will add vancomycin for possibility of healthcare acquired pneumonia, will add IV Lasix of 40 mg every 8 hours, echocardiogram results have been reviewed. We'll send the sputum for culture, patient is having large amount of purulent phlegm. No hemoptysis, awaiting records from [facility]. Awaiting results from COVID 19 testing. ID service is following. Follow-up chest x-ray tomorrow and acurate intake and output, daily weights. Patient's home dose of oral anticoagulation has been reordered. We will continue to closely follow and make further recommendations, continue droplet precautions I performed a history & physical examination of the patient and discussed their management with my nurse practitioner, Elvia Johnson. I reviewed the nurse practitioner's note and agree with the documented findings and plan of care. Lung sounds are positive for coarse crackles in both lungs. The findings and the impression was discussed with the patient. I attest to the documentation by the nurse practitioner. Time with Patient: Greater than 30
[2020-02-06] MEDS: VANCOMYCIN 1,500 MG in SODIUM CHLORIDE 0.9% 250 ML IVPB SCH (16:45)
[2020-02-06] MEDS: LEVOFLOXACIN 750MG-D5W PMX 750 MG in DEXTROSE/WATER 1 150ML.BAG IVPB SCH (16:45)
[2020-02-06 16:49] LABS: Cyclic Citrull Pep IgG Unit 9.3 U/mL; Cyclic Citrullinated Pep IgG POSITIVE (NEGATIVE)
[2020-02-06 16:58] LABS: Glucose,Whole Blood 85 mg/dL (75-99)
--- NOTE | 2020-02-06 19:32 | P.PN ---
Subjective Progress Note Date: 02/06/20 (delayed charting seen at 1030) Principal diagnosis: shortness of breath Patient is a 69-year-old -[place] male male past medical history of DVT with filter, possible prior congestive heart failure, hypertension, and dyslipidemia who presented to the emergency department for shortness of breath. Apparently he was diagnosed with bilateral interstitial pneumonia in [place], but [place]. Apparently he is unsure why he had up in [place] and states he was trying to go to [place]. On arrival here he was afebrile with normal vital signs. Initial labs showed anemia with hemoglobin 10, lymphocytes 0.8, BUN 48, creatinine 1.45, BNP 10,100, albumin 3.1, pro calcitonin was normal at 0.12. TSH was normal. He underwent a chest x-ray which showed multifocal infiltrates with alveolar opacities and concern for multifocal pneumonia with hemorrhage or ARDS. CT head showed abnormal widening of the lateral tendons with mass effect on proximal cervical cord. He is admitted for possible viral pneumonia. Influenza A and B were negative. He was seen by neurology who had concern for possible rheumatoid arthritis due to the low widening of the lateral tendons with maximum effect on the proximal cervical cord. They recommended a rheumatoid factor and anti-CCP both of which are abnormal. Repeat chest x-ray the next day was unchanged. Echocardiogram showed ejection fraction of 40-45% with severe concentric LVH as well as moderate mitral and tricuspid regurg associated with moderate aortic stenosis. Patient seen and examined at bedside. He complains of some shortness of breath, intermittent cough that is unchanged, no nausea or vomiting, is having some fatigue. No other complaints currently. States he doesn't know why he is here he feels just fine. He reports he was at [facility] in [place] approximately a week ago for 4 days secondary to congestive heart failure. Objective - Vital Signs Vital signs: Vital Signs Temp 98.4 F 02/06/20 16:00 Pulse 92 02/06/20 16:00 Resp 22 02/06/20 16:00 BP 107/64 02/06/20 16:00 Pulse Ox 93 L 02/06/20 16:00 Intake & Output 02/06/20 02/06/20 02/07/20 06:59 18:59 06:59 Intake Total 830 Output Total 450 950 Balance -450 -120 Weight 92.4 kg Intake: Intake, IV Titration 350 Amount Levofloxacin 750Mg-D5w 100 Pmx 750 mg In Dextrose/ Water 1 150ml.bag @ 100 mls/hr IVPB Q24H [facility] Rx#: [id number] Vancomycin 1,500 mg In 250 Sodium Chloride 0.9% 250 ml @ 125 mls/hr IVPB Q16H [facility] Rx#:[id number] Oral 480 Output: Urine 450 950 Other: Voiding Method Toilet # Voids 1 1 # Bowel Movements 1 - Exam General: non toxic, no distress, appears at stated age Derm: warm, dry Head: atraumatic, normocephalic, symmetric Eyes: EOMI, no lid lag, anicteric sclera Mouth: no lip lesion, mucus membranes moist Cardiovascular: [S1S2 reg with systolic ejection murmur, positive posterior tibial pulse bilateral, Lungs: Crackles bilateral bases , no accessory muscle use Abdominal: soft, nontender to palpation, no guarding, no appreciable organomegaly Ext: no gross muscle atrophy, 2+ edema, no contractures Neuro: CN II-XI grossly intact, no focal neuro deficits Psych: Alert, oriented, appropriate affect - Labs CBC & Chem 7: 02/06/20 05:45 02/06/20 05:45 Labs: Abnormal Lab Results - Last 24 Hours (Table) 02/05/20 02/05/20 02/06/20 Range/Units 14:09 14:09 05:45 RBC 4.09 L (4.30-5.90) m/uL Hgb 9.9 L (13.0-17.5) gm/dL Hct 33.2 L (39.0-53.0) % MCH 24.2 L (25.0-35.0) pg MCHC 29.9 L (31.0-37.0) g/dL RDW 19.9 H (11.5-15.5) % Chloride (98-107) mmol/L BUN (9-20) mg/dL Creatinine (0.66-1.25) mg/dL POC Glucose (mg/dL) (75-99) mg/dL Magnesium (1.6-2.3) mg/dL Alkaline Phosphatase (38-126) U/L Total Protein (6.3-8.2) g/dL Albumin (3.5-5.0) g/dL Procalcitonin 0.12 H (0.02-0.09) ng/mL Rheumatoid Factor 72 H (0-15) IU/mL Cyclic Citrull Peptide (NEGATIVE) 02/06/20 02/06/20 02/06/20 Range/Units 05:45 05:45 13:22 RBC (4.30-5.90) m/uL Hgb (13.0-17.5) gm/dL Hct (39.0-53.0) % MCH (25.0-35.0) pg MCHC (31.0-37.0) g/dL RDW (11.5-15.5) % Chloride 110 H (98-107) mmol/L BUN 41 H (9-20) mg/dL Creatinine 1.50 H (0.66-1.25) mg/dL POC Glucose (mg/dL) 129 H (75-99) mg/dL Magnesium 2.4 H (1.6-2.3) mg/dL Alkaline Phosphatase 155 H (38-126) U/L Total Protein 6.0 L (6.3-8.2) g/dL Albumin 3.0 L (3.5-5.0) g/dL Procalcitonin (0.02-0.09) ng/mL Rheumatoid Factor (0-15) IU/mL Cyclic Citrull Peptide POSITIVE H (NEGATIVE) Microbiology - Last 24 Hours (Table) 02/05/20 14:09 Blood Culture - Preliminary Blood No Growth after 24 hours Assessment and Plan Assessment: Acute exacerbation of systolic congestive heart failure with ejection fraction 40-45% associated with valvular heart disease with moderate aortic stenosis with regurgitation, moderate tricuspid regurgitation, moderate mitral regurgitation, and mild to moderate pulmonary hypertension. -Start Lasix -Follow BMP -Continue his beta olivia -Strict I's and O's, daily weights -Not currently on ELIZABETH inhibitor. Will not start due to elevated creatinine. -Obtain records from [place]. Healthcare associated pneumonia -Continue with Levaquin, Zosyn, vancomycin added by pulmonary -Await pulmonary recommendations -Await COVID-19 testing -Continue with pulmonary hygiene -Albuterol as needed -Sputum cultures Possible rheumatoid arthritis -Avoid steroids at this point in time -Outpatient evaluation Toxic metabolic encephalopathy -Supportive care as listed above Chronic kidney disease, unknown baseline creatinine - Suspect TKD stage III -Avoid ELIZABETH inhibitor Zestril-follow creatinine carefully with diuresis -Attempt to obtain records. Hypertension -Continue with metoprolol, Procardia -Follow blood pressures Dyslipidemia -Statin therapy DVT prophylaxis: Chronic: DVT Coronary artery disease Discussed with: patient, nursing Anticipated discharge: 3-[address]: home A total of 35 minutes was spent on the care of this complex patient more than 50% of the time was spent in counseling and care coordination.
[2020-02-06] MEDS: IPRATROPIUM-ALBUTEROL 3 ML NEB INHALATION SCH (20:11)
[2020-02-06] MEDS: ATORVASTATIN 40 MG TAB PO SCH (20:23)
[2020-02-06 21:05] LABS: Glucose,Whole Blood 81 mg/dL (75-99)
--- NOTE | 2020-02-06 21:20 | P.CONS ---
History of Present Illness - Reason for Consult Consult date: 02/06/20 pulmonary infiltrates Requesting physician: Ariella Marroquin - Chief Complaint fever and cough x few days - History of Present Illness Patient is a 69-year-old -Mosotho male who was brought into the ER as a transfer from [place] went to the hospital in [place] patient was complaining of cough and fever patient was diag nosed with bilateral Serratia pneumonia patient apparently lives in [place] and he says he was diagnosed with isolated right and is not sure how he ended up in [place] patient was noted to be slightly confused , patient on arrival to the ER was afebrile initially however the patient did have a low-grade fever 100 Fahrenheit at midnight patient has been afebrile since then patient did have a normal white count of 7.5 mild lymphopenia 0.8 yesterday is normal today lactic acid was normal CRP elevated 135 and procalcitonin was elevated 0.12 patient did have a chest x-ray numerous multifocal interstitial infiltrate present for multifocal pneumonia pulmonary hemorrhage or ARDS chest x-ray this morning with minimal improvement in her left upper lobe airspace disease patient has been treated with vancomycin Zosyn Levaquin infectious was consulted for further recommendation about antibiotic therapy patient mentioning slight improvement in his symptoms since he has been here in the hospital denies any headache or significant URI symptom he did have some cough is mild to moderate intensity with minimal sputum no nausea with no shortness before abdominal pain or diarrhea Review of Systems positive point has been mentioned in HPI rest of the systems are negative. Past Medical History Past Medical History: Coronary Artery Disease (CAD), Heart Failure, Hyperlipidemia, Hypertension Additional Past Medical History / Comment(s): DVT with filter History of Any Multi-Drug Resistant Organisms: None Reported Past Surgical History: Orthopedic Surgery Additional Past Surgical History / Comment(s): IVC filter for blood clots, foot surg Past Anesthesia/Blood Transfusion Reactions: No Reported Reaction Past Psychological History: No Psychological Hx Reported Smoking Status: Former smoker Past Alcohol Use History: None Reported Past Drug Use History: None Reported - Past Family History Mother Family Medical History: Myocardial Infarction (PA) Medications and Allergies Home Medications Medication Instructions Recorded Confirmed Type ALPRAZolam [Xanax] 0.5 mg PO HS PRN 02/05/20 02/05/20 History Albuterol Sulfate [Albuterol 2 puff PO RT-Q4H PRN 02/05/20 02/05/20 History Sulfate Hfa] Allopurinol [Zyloprim] 300 mg PO DAILY 02/05/20 02/05/20 History Aspirin EC [Ecotrin Low Dose] 81 mg PO DAILY 02/05/20 02/05/20 History Atorvastatin [Lipitor] 40 mg PO HS 02/05/20 02/05/20 History Azelastine HCl 1 spray EA NOSTRIL BID 02/05/20 02/05/20 History Furosemide [Lasix] 20 mg PO BID 02/05/20 02/05/20 History HYDROcodone/APAP 10-325MG [Kite 1 tab PO BID PRN 02/05/20 02/05/20 History 10-325] Ipratropium/Albuterol Sulfate 1 puff INHALATION RT-TID 02/05/20 02/05/20 History [Combivent Respimat Inhaler] Metoprolol Succinate (ER) [Toprol 25 mg PO DAILY 02/05/20 02/05/20 History Xl] NIFEdipine XL [Procardia Xl] 60 mg PO DAILY 02/05/20 02/05/20 History Rivaroxaban [Xarelto] 15 mg PO DAILY 02/05/20 02/05/20 History Tamsulosin [Flomax] 0.4 mg PO AC-BRKFST 02/05/20 02/05/20 History Allergies Allergy/AdvReac Type Severity Reaction Status Date / Time No Known Allergies Allergy Verified 02/05/20 16:10 Physical Exam Vitals: Vital Signs Temp Pulse Pulse Resp BP BP Pulse Ox 02/06/20 11:27 98.6 F 105 H 22 116/58 93 L 02/06/20 08:15 98 02/06/20 08:00 99.4 F 98 22 121/56 93 L 02/06/20 04:00 98.4 F 95 20 98/71 98 02/06/20 03:53 95 24 02/06/20 00:00 100.0 F H 95 24 138/58 100 02/05/20 20:00 98.0 F 90 24 115/64 99 02/05/20 18:15 97.8 F 93 16 100/63 93 L 02/05/20 17:02 93 16 100/63 93 L 02/05/20 16:50 93 16 100/63 93 L 02/05/20 16:40 91 25 H 115/75 100 02/05/20 16:30 90 18 123/75 94 L 02/05/20 16:28 98.1 F 98 24 107/58 90 L 02/05/20 16:20 94 19 123/75 02/05/20 16:10 101 H 25 H 116/79 94 L 02/05/20 16:00 90 28 H 115/58 02/05/20 15:50 92 23 115/58 02/05/20 15:40 85 22 115/58 98 Intake and Output 02/06/20 02/06/20 02/06/20 06:59 14:59 22:59 Intake Total 240 Output Total 450 100 Balance -450 140 Intake: Oral 240 Output: Urine 450 100 Other: Voiding Method Toilet # Voids 1 Weight 92.4 kg GENERAL DESCRIPTION: Elderly male lying in bed, no distress. No tachypnea or accessory muscle of respiration use. HEENT: Shows Pallor , no scleral icterus. Oral mucous membrane is dry. NECK: Trachea central, no thyromegaly. LUNGS: Unlabored breathing. decreased breath sound at base . No wheeze or crackle. HEART: S1, S2, regular rate and rhythm. ABDOMEN: Soft, no tenderness , guarding or rigidity EXTREMITIES: No edema of feet. SKIN: No rash, no masses palpable. NEUROLOGICAL: The patient is awake, alert, oriented x3, mood and affect normal. Results CBC & Chem 7: 02/06/20 05:45 02/06/20 05:45 Labs: Abnormal Lab Results - Last 24 Hours (Table) 02/05/20 02/05/20 02/05/20 Range/Units 14:09 14:09 14:09 RBC (4.30-5.90) m/uL Hgb (13.0-17.5) gm/dL Hct (39.0-53.0) % MCH (25.0-35.0) pg MCHC (31.0-37.0) g/dL RDW (11.5-15.5) % Chloride (98-107) mmol/L BUN (9-20) mg/dL Creatinine (0.66-1.25) mg/dL POC Glucose (mg/dL) (75-99) mg/dL Magnesium (1.6-2.3) mg/dL Alkaline Phosphatase (38-126) U/L C-Reactive Protein 135.4 H (<10.0) mg/L Total Protein (6.3-8.2) g/dL Albumin (3.5-5.0) g/dL Procalcitonin 0.12 H (0.02-0.09) ng/mL Rheumatoid Factor 72 H (0-15) IU/mL 02/06/20 02/06/20 02/06/20 Range/Units 05:45 05:45 13:22 RBC 4.09 L (4.30-5.90) m/uL Hgb 9.9 L (13.0-17.5) gm/dL Hct 33.2 L (39.0-53.0) % MCH 24.2 L (25.0-35.0) pg MCHC 29.9 L (31.0-37.0) g/dL RDW 19.9 H (11.5-15.5) % Chloride 110 H (98-107) mmol/L BUN 41 H (9-20) mg/dL Creatinine 1.50 H (0.66-1.25) mg/dL POC Glucose (mg/dL) 129 H (75-99) mg/dL Magnesium 2.4 H (1.6-2.3) mg/dL Alkaline Phosphatase 155 H (38-126) U/L C-Reactive Protein (<10.0) mg/L Total Protein 6.0 L (6.3-8.2) g/dL Albumin 3.0 L (3.5-5.0) g/dL Procalcitonin (0.02-0.09) ng/mL Rheumatoid Factor (0-15) IU/mL Assessment and Plan Assessment: 1-patient presented hospital with a fever and cough in this patient who did have a multifocal infiltrate with concern for possible nosocomial pneumonia in this patient apparently recent admission at [facility] versus a viral pneumonia such as COVID-19 (1) Pneumonia Current Visit: Yes Status: Acute Code(s): J18.9 - PNEUMONIA, UNSPECIFIED ORGANISM SNOMED Code(s): 593139590 Plan: 1-respiratory isolation till COVID-19 testing is completed 2-we will switch Zosyn to cefepime and continue with the vancomycin to decrease risk of nephrotoxicity 3-sputum cultures We will follow on clinical condition and cultures to further adjust medication if needed Thank you for this consultation we will follow the patient along with you Time with Patient: Greater than 30
[2020-02-06] MEDS: CEFEPIME 2 GM in SODIUM CHLORIDE 0.9% 100 ML IVPB SCH (22:38)
[2020-02-07] MEDS: VANCOMYCIN 1,500 MG in SODIUM CHLORIDE 0.9% 250 ML IVPB SCH ×2 (06:09→20:35)
[2020-02-07] MEDS: TAMSULOSIN 0.4 MG CAP.ER.24H PO SCH (06:09)
[2020-02-07 06:10] LABS: Anisocytosis Slight; Basophils % (A) 0 %; Eosinophils # (A) 0.3 k/uL (0-0.7); Eosinophils % (A) 4 %; HCT 34.7 % (39.0-53.0); HGB 10.2 gm/dL (13.0-17.5); Hypochromasia Marked; Lymphocytes # (A) 0.8 k/uL (1.0-4.8); Lymphocytes % (A) 10 %; MCH 23.7 pg (25.0-35.0); MCHC 29.4 g/dL (31.0-37.0); MCV 80.8 fL (80.0-100.0); Mean Platelet Volume 7.5; Microcytosis Slight; Monocytes # (A) 0.5 k/uL (0-1.0); Monocytes % (A) 6 %; Neutrophils # (A) 6.5 k/uL (1.3-7.7); Neutrophils % (A) 78 %; Platelet Count 219 k/uL (150-450); RBC 4.29 m/uL (4.30-5.90); RDW 19.5 % (11.5-15.5); WBC 8.3 k/uL (3.8-10.6)
[2020-02-07 06:34] LABS: Calcium 8.5 mg/dL (8.4-10.2); Potassium 4.1 mmol/L (3.5-5.1); Total Bilirubin 0.7 mg/dL (0.2-1.3); Total Protein 5.9 g/dL (6.3-8.2)
[2020-02-07] MEDS: IPRATROPIUM-ALBUTEROL 3 ML NEB INHALATION SCH ×3 (07:51→19:40)
[2020-02-07] MEDS: CEFEPIME 2 GM in SODIUM CHLORIDE 0.9% 100 ML IVPB SCH ×2 (08:53→20:35)
[2020-02-07] MEDS: METOPROLOL SUCCINATE (ER) 25 MG TAB.ER.24H PO SCH (08:55)
[2020-02-07] MEDS: RIVAROXABAN 15 MG TAB PO SCH (08:55)
[2020-02-07] MEDS: FUROSEMIDE 10 MG/ML 4 ML VIAL IV SCH ×3 (08:55→23:21)
[2020-02-07] MEDS: ASPIRIN 81 MG PO SCH (08:55)
[2020-02-07] MEDS: ALLOPURINOL 300 MG TAB PO SCH (08:55)
[2020-02-07] MEDS ORDERED: ASPIRIN 81 MG PO SCH (09:00)
--- NOTE | 2020-02-07 10:32 | XR ---
EXAMINATION TYPE: XR chest 1V portable DATE OF EXAM: 02/07/2020 HISTORY: chf/infiltrates. REFERENCE: Previous study dated 02/06/2020. FINDINGS: There continues to be interstitial change present bilaterally. There is confluent areas of consolidation in the right upper and lower lobes. The heart is mildly enlarged. I suspect a right eff usion. IMPRESSION: THERE MAY HAVE BEEN VERY MINIMAL IMPROVEMENT IN THE APPEARANCE OF THE CHEST.
--- NOTE | 2020-02-07 12:44 | P.PN ---
Subjective Progress Note Date: 02/07/20 Principal diagnosis: Acute exacerbation of systolic congestive heart failure, possible healthcare acquired pneumonia 69-year-old -Micron[place] male patient who resides in [facility], who presented to the emergency department after ending up in [place] and taking a wrong turn. Patient states he was in the [facility] for approximately 1- 2 hours, 7 shortness of breath, and cough, he was placed in isolation there, was given doxycycline and ceftriaxone and dexamethasone. COVID 19 testing was ordered however not run because the patient was leaving their facility. Patient is somewhat of a poor historian, his timeline of events is quite disorganized. His baseline mentation is not known. He states last week he was hospitalized for 4 days at [facility] for shortness of breath, and swelling in his lower extremities. He states he had a heart catheterization during that stay, the results are unknown. He is not sure whether he had pneumonia, thinks that someone told him he had acute congestive heart failure. He was discharged home on Sunday02/01/2020, and he followed up with his PCP on 02/02/2020, he was severely short of breath, and he states his pulse ox was extremely low on room air and his PCP was quite upset that he was discharged home prematurely and without oxygen. He was provided with oxygen, he was sent home. He lives with his brother, he is retired. He is , has adult children. He denies any recent travel other than [place], denies any contacts with any COVID 19 positive people. He states he quit smoking several years ago, did smoke a pack a day for 10 years, not normally on oxygen. Other medical history includes hypertension, hyperlipidemia, coronary artery disease, history of DVT with filter placement. Patient denied any fever or chills, he is coughing up purulent phlegm but no hemoptysis, denied any chest pain, denied any palpitations, lightheadedness or dizziness. He did note increased swelling in his bilateral lower extremities since discharge from the hospital. Chest x-ray completed in the emergency department showed numerous multifocal interstitial and alveolar opacities consideration to multifocal pneumonia, pulmonary hemorrhage or ARDS. Patient's mentation was confused on admission, patient had a neurologic evaluation, brain CT showed abnormal widening of the lateral Raoul interval, and mass effect on the proximal cervical cord just distal to the cerv ical medullary junction, chronic small vessel ischemic changes, and age-related atrophy. His EKG showed sinus rhythm with first-degree AV block possibility of left atrial enlargement, and evidence of septal infarct of undetermined age. Admission lab work showed white blood cell, 7.5, hemoglobin of 10.0, platelet count of 213, lymphocytes of 0.8, coagulation profile was within normal limits, sodium was 140, potassium is 4.7, chloride was 109, CO2 is 25, BUN was 48, creatinine is 1.45, patient states he does have chronic kidney disease, and we are not sure of his baseline GFR. Troponin was negative at 0.012, proBNP was 45116, pro-calcitonin came back at 0.12 only mildly elevated, CRP was 135, urinalysis was negative, rheumatoid factor was 72, influenza screen was negative. She was started on Levaquin and Zosyn, and we're consulted for evaluation of his abnormal chest x-ray showing multifocal airspace disease. Patient was reevaluated today on 02/07/20, feeling a bit better, breathing a bit easier, remains on oxygen at 3 L, O2 sats ration is 94%, chest x-ray is showing definite improvement in his interstitial edema patient remains afebrile over the last 24 hours. Patient had a T-max of 100 on admission and since then has been basically afebrile. CBC today showed normal WBC count continues to have lymphopenia. Electrolytes are normal, renal profile is basically the same, cre atinine is 1.50. Patient is responding quite well to diuretics. And he is empirically on antibiotics Objective - Vital Signs Vital signs: Vital Signs Temp 98.4 F 02/07/20 08:00 Pulse 102 H 02/07/20 08:00 Resp 22 02/07/20 08:00 BP 94/60 02/07/20 08:00 Pulse Ox 97 02/07/20 08:00 Intake & Output 02/06/20 02/07/20 02/07/20 18:59 06:59 18:59 Intake Total 830 240 470 Output Total 950 3980 400 Balance -120 -3740 70 Weight 92.7 kg Intake: Intake, IV Titration 350 350 Amount Cefepime 2 gm In Sodium 100 Chloride 0.9% 100 ml @ 200 mls/hr IVPB Q12HR [facility] Rx#:[id number] Levofloxacin 750Mg-D5w 100 Pmx 750 mg In Dextrose/ Water 1 150ml.bag @ 100 mls/hr IVPB Q24H [facility] Rx#: [id number] Vancomycin 1,500 mg In 250 250 Sodium Chloride 0.9% 250 ml @ 125 mls/hr IVPB Q16H [facility] Rx#:[id number] Oral 480 240 120 Output: Urine 950 3980 400 Other: Voiding Method Urinal # Voids 1 4 - Exam GENERAL EXAM: Revealed a 69-year-old cachectic -Micronesian male, in no distress. HEENT: PERRLA, EOMI, neck test, dry mucous membranes. CHEST: No chest wall deformity. Symmetrical expansion. LUNGS: Equal air entry minimal fine crackles at the bases persists. CVS: Regular rate and rhythm, normal S1 and S2, no gallops, no murmurs, no rubs ABDOMEN: Soft, nontender. No hepatosplenomegaly, normal bowel sounds, no guarding or rigidity. EXTREMITIES: No clubbing, 1+ bipedal edema, no cyanosis. MUSCULOSKELETAL: Muscle strength and tone normal. SPINE: No scoliosis or deformity SKIN: No rashes CENTRAL NERVOUS SYSTEM: Alert and oriented -2, person, place. No focal deficits, tone is normal in all 4 extremities. PSYCHIATRIC: Alert and oriented -2 Appropriate affect. Intact judgment and insight. - Labs CBC & Chem 7: 02/07/20 05:47 02/07/20 05:47 Labs: Abnormal Lab Results - Last 24 Hours (Table) 02/06/20 02/06/20 02/07/20 Range/Units 05:45 13:22 05:47 RBC 4.29 L (4.30-5.90) m/uL Hgb 10.2 L (13.0-17.5) gm/dL Hct 34.7 L (39.0-53.0) % MCH 23.7 L (25.0-35.0) pg MCHC 29.4 L (31.0-37.0) g/dL RDW 19.5 H (11.5-15.5) % Lymphocytes # 0.8 L (1.0-4.8) k/uL BUN (9-20) mg/dL Creatinine (0.66-1.25) mg/dL POC Glucose (mg/dL) 129 H (75-99) mg/dL Alkaline Phosphatase (38-126) U/L Total Protein (6.3-8.2) g/dL Albumin (3.5-5.0) g/dL Cyclic Citrull Peptide POSITIVE H (NEGATIVE) 02/07/20 Range/Units 05:47 RBC (4.30-5.90) m/uL Hgb (13.0-17.5) gm/dL Hct (39.0-53.0) % MCH (25.0-35.0) pg MCHC (31.0-37.0) g/dL RDW (11.5-15.5) % Lymphocytes # (1.0-4.8) k/uL BUN 31 H (9-20) mg/dL Creatinine 1.50 H (0.66-1.25) mg/dL POC Glucose (mg/dL) (75-99) mg/dL Alkaline Phosphatase 137 H (38-126) U/L Total Protein 5.9 L (6.3-8.2) g/dL Albumin 3.0 L (3.5-5.0) g/dL Cyclic Citrull Peptide (NEGATIVE) Microbiology - Last 24 Hours (Table) 02/05/20 14:09 Blood Culture - Preliminary Blood No Growth after 24 hours Assessment and Plan Assessment: #1. Acute exacerbation of systolic congestive heart failure, improving based on the clinical findings and based on the chest x-ray findings on follow-up, but definitely not resolved yet. #2. Possible healthcare acquired pneumonia, in view of recent hospitalization at [facility]. Chest x-ray showed numerous multifocal interstitial and alveolar opacities, with consideration for multifocal pneumonia, #3. Recent hospitalization at [facility], according to the patient he was discharged on 02/01/2020, we'll try to obtain records #4. Altered mental status and confusion, patient has been evaluated by neurology, brain CT showed abnormal widening of the lateral Raoul interval, and mass effect on the proximal cervical cord. Neurology tried to obtain records from [facility] before proceeding with carotid Dopplers and MRI of the brain #5. Chronic kidney disease, baseline GFR is unknown #6. Pending test for COVID 19, in view of patient's symptoms of cough and shortness of breath, but no recent history of travel or exposure to COVID 19 positive people #7. Coronary artery disease #8. Hypertension #9. Hyperlipidemia #10. History of DVT with placement of IVC filter, and oral anticoagulation with Xarelto #11. Former smoker, in remission for many years, smoked a pack a day for 10 years Recommendation: Continue diuretics Continue antibiotics Resume home meds Continue oxygen Continue bronchodilators Patient is being followed by neurology regarding his abnormal CT of the brain We will continue to follow, awaiting results of his covid 19 testing. Will follow. Time with Patient: Less than 30
[2020-02-07] MEDS: LEVOFLOXACIN 750MG-D5W PMX 750 MG in DEXTROSE/WATER 1 150ML.BAG IVPB SCH (15:03)
--- NOTE | 2020-02-07 16:41 | P.PN ---
Subjective Progress Note Date: 02/07/20 (Delayed charting seen at 1145) Principal diagnosis: shortness of breath Patient is a 69-year-old -Sammarinese male male past medical history of DVT with filter, possible prior congestive heart failure, hypertension, and dyslipidemia who presented to the emergency department for shortness of breath. Apparently he was diagnosed with bilateral interstitial pneumonia in [place], but due to [place]. Apparently he is unsure why he had up in [place] and states he was trying to go to [place]. On arrival here he was afebrile with normal vital signs. Initial labs showed anemia with hemoglobin 10, lymphocytes 0.8, BUN 48, creatinine 1.45, BNP 10,100, albumin 3.1, pro calcitonin was normal at 0.12. TSH was normal. He underwent a chest x-ray which showed multifocal infiltrates with alveolar opacities and concern for multifocal pneumonia with hemorrhage or ARDS. CT head showed abnormal widening of the lateral tendons with mass effect on proximal cervical cord. He is admitted for possible viral pneumonia. Influenza A and B were negative. He was seen by neurology who had concern for possible rheumatoid arthritis due to the low widening of the lateral tendons with maximum effect on the proximal cervical cord. They recommended a rheumatoid factor and anti-CCP both of which are abnormal. Repeat chest x-ray the next day was unchanged. Echocardiogram showed ejection fraction of 40-45% with severe concentric LVH as well as moderate mitral and tricuspid regurg associated with moderate aortic stenosis. Patient seen and examined at bedside. Patient is able to recall that at [facility] he was diagnosed with just of heart failure. He states that he left for about a day was supposed to have follow-up with a health and physical education professor and his primary care physician but was unable to coordinate this. It is hard to discern when all of this occurred as patient states keeps changing. With a long discussion about how he will again have symptoms should he not take his medications and eat a low-salt diet with restricted fluid intake. He reports that his breathing is easier today and he is coughing less. His cough is also now nonproductive. Objective - Vital Signs Vital signs: Vital Signs Temp 97.7 F 02/07/20 15:01 Pulse 85 02/07/20 15:01 Resp 20 02/07/20 15:01 BP 106/69 03/21/20 15:01 Pulse Ox 98 02/07/20 15:01 Intake & Output 02/06/20 02/07/20 02/07/20 18:59 06:59 18:59 Intake Total 830 240 720 Output Total 950 3980 1800 Balance -535 -7971 -1080 Weight 92.7 kg Intake: Intake, IV Titration 350 350 Amount Cefepime 2 gm In Sodium 100 Chloride 0.9% 100 ml @ 200 mls/hr IVPB Q12HR [facility] Rx#:[id number] Levofloxacin 750Mg-D5w 100 Pmx 750 mg In Dextrose/ Water 1 150ml.bag @ 100 mls/hr IVPB Q24H [facility] Rx#: [id number] Vancomycin 1,500 mg In 250 250 Sodium Chloride 0.9% 250 ml @ 125 mls/hr IVPB Q16H [facility] Rx#:[id number] Oral 480 240 370 Output: Urine 950 3980 1800 Other: Voiding Method Urinal # Voids 1 4 - Exam General: non toxic, no distress, appears at stated age Derm: warm, dry Head: atraumatic, normocephalic, symmetric Eyes: EOMI, no lid lag, anicteric sclera Mouth: no lip lesion, mucus membranes moist Cardiovascular: [S1S2 reg with systolic ejection murmur, positive posterior tibial pulse bilateral, Lungs: Crackles bilateral bases , no accessory muscle use Abdominal: soft, nontender to palpation, no guarding, no appreciable organomegaly Ext: no gross muscle atrophy, 2+ edema, no contractures Neuro: CN II-XI grossly intact, no focal neuro deficits Psych: Alert, oriented, appropriate affect - Labs CBC & Chem 7: 02/07/20 05:47 02/07/20 05:47 Labs: Abnormal Lab Results - Last 24 Hours (Table) 02/06/20 02/07/20 02/07/20 Range/Units 05:45 05:47 05:47 RBC 4.29 L (4.30-5.90) m/uL Hgb 10.2 L (13.0-17.5) gm/dL Hct 34.7 L (39.0-53.0) % MCH 23.7 L (25.0-35.0) pg MCHC 29.4 L (31.0-37.0) g/dL RDW 19.5 H (11.5-15.5) % Lymphocytes # 0.8 L (1.0-4.8) k/uL BUN 31 H (9-20) mg/dL Creatinine 1.50 H (0.66-1.25) mg/dL Alkaline Phosphatase 137 H (38-126) U/L Total Protein 5.9 L (6.3-8.2) g/dL Albumin 3.0 L (3.5-5.0) g/dL Cyclic Citrull Peptide POSITIVE H (NEGATIVE) Microbiology - Last 24 Hours (Table) 02/05/20 14:09 Blood Culture - Preliminary Blood No Growth after 24 hours Assessment and Plan Assessment: Acute exacerbation of systolic congestive heart failure with ejection fraction 40-45% associated with valvular heart disease with moderate aortic stenosis with regurgitation, moderate tricuspid regurgitation, moderate mitral regurgitation, and mild to moderate pulmonary hypertension. -Lasix -Continue his beta olivia -Strict I's and O's, daily weights -Not currently on ELIZABETH inhibitor. Will not start due to elevated creatinine. -Obtain records from [facility]. -Out patient follow-up with cardio as previously scheduled. Possible Healthcare associated pneumonia, doubt bacterial as procalcitonin is negative -Continue with Levaquin, Zosyn, vancomycin added by pulmonary -Pulmonary recommendations appreciated -Await COVID-19 testing -Continue with pulmonary hygiene -Albuterol as needed -Sputum cultures Rheumatoid arthritis - Patient had been seeing a rheumatoligst and stopped, has held this diagnosis for 4 years. - Avoid steroids at this point in time - Outpatient evaluation Toxic metabolic encephalopathy, improving -Supportive care as listed above Chronic kidney disease, unknown baseline creatinine - Suspect CKD stage III -Avoid ELIZABETH inhibitor -follow creatinine carefully with diuresis -Attempt to obtain records. (requested 02/06/20) Hypertension -Continue with metoprolol, Procardia -Follow blood pressures Dyslipidemia -Statin therapy DVT prophylaxis: Chronic: DVT Coronary artery disease Discussed with: patient, nursing Anticipated discharge: 2-[address]: home A total of 35 minutes was spent on the care of this complex patient more than 50% of the time was spent in counseling and care coordination.
--- NOTE | 2020-02-07 18:45 | PN ---
PROGRESS NOTE DATE OF SERVICE: 02/07/2020 REASON FOR FOLLOWUP: Pneumonia. INTERVAL HISTORY: The patient is currently afebrile. Patient is more awake, alert. He is breathing comfortably. Did mention feeling slightly better today. Denies any chest pain. He did have a cough and bringing up some sputum. No hemoptysis. No nausea, no vomiting. No abdominal pain. No diarrhea. PHYSICAL EXAMINATION: Blood pressure 106/69 with a pulse of 85. Temperature 97.7. He is 98% on 3 L nasal cannula. General description is an elderly male up in the bed in no distress. Respiratory system: Unlabored breathing, decreased breath sounds in the bases. No wheeze. Heart S1, S2. Regular rate and rhythm. ABDOMEN: Soft. No tenderness. LABS: Hemoglobin is 10.1, white count 8.3, creatinine 1.50. Sputum culture currently pending. Blood culture so far pending. IMPRESSION/PLAN: Patient admitted to the hospital with fever and cough in this patient who did have evidence of and right upper lobe consolidation, possibly community acquired pneumonia. The patient is currently covered with cefepime and vancomycin to continue. Sputum culture obtain, will be followed and adjust antibiotic further based on the culture report. Continue supportive care. MMODL / IJN: [id number] /
[2020-02-07] MEDS: ATORVASTATIN 40 MG TAB PO SCH (20:35)
[2020-02-08] MEDS: HYDROcodone/APAP 5-325MG 1 EACH TAB PO PRN ×2 (00:08→21:09)
[2020-02-08] MEDS: TAMSULOSIN 0.4 MG CAP.ER.24H PO SCH (06:20)
[2020-02-08] MEDS: IPRATROPIUM-ALBUTEROL 3 ML NEB INHALATION SCH ×3 (08:12→21:56)
[2020-02-08] MEDS: ALLOPURINOL 300 MG TAB PO SCH (08:32)
[2020-02-08] MEDS: RIVAROXABAN 15 MG TAB PO SCH (08:32)
[2020-02-08] MEDS: FUROSEMIDE 10 MG/ML 4 ML VIAL IV SCH ×2 (08:32→15:13)
[2020-02-08] MEDS: ASPIRIN 81 MG PO SCH (08:32)
[2020-02-08] MEDS: CEFEPIME 2 GM in SODIUM CHLORIDE 0.9% 100 ML IVPB SCH ×2 (08:32→21:03)
[2020-02-08] MEDS: METOPROLOL SUCCINATE (ER) 25 MG TAB.ER.24H PO SCH (08:32)
--- NOTE | 2020-02-08 14:07 | P.PN ---
Subjective Progress Note Date: 02/08/20 Principal diagnosis: Shortness of breath Patient was seen and examined. No acute events overnight. Patient reports slight improvement in his breathing since admission. He does report a cough productive of clear creamy sputum. He denies any chest pain or palpitations. No nausea or vomiting. No fever or chills. Objective - Vital Signs Vital signs: Vital Signs Temp 99 F 02/08/20 11:17 Pulse 89 02/08/20 11:17 Resp 22 02/08/20 11:17 BP 99/47 02/08/20 11:17 Pulse Ox 94 L 02/08/20 11:17 Intake & Output 02/07/20 02/08/20 02/08/20 18:59 06:59 18:59 Intake Total 1740 540 360 Output Total 2600 400 Balance -860 140 360 Weight 85.8 kg Intake: Intake, IV Titration 350 Amount Cefepime 2 gm In Sodium 100 Chloride 0.9% 100 ml @ 200 mls/hr IVPB Q12HR ROMY Rx#:[id number] Vancomycin 1,500 mg In 250 Sodium Chloride 0.9% 250 ml @ 125 mls/hr IVPB Q16H ROMY Rx#:[id number] Oral 1390 540 360 Output: Urine 2600 400 - Exam General: [non toxic], [no distress], [appears at stated age] Derm: [warm], [dry] Head: [atraumatic], [normocephalic], [symmetric] Eyes: [EOMI], [no lid lag], [anicteric sclera] Mouth: [no lip lesion], [mucus membranes moist] Cardiovascular: [S1S2 reg], [systolic ejection murmur], [positive posterior tibial pulse bilateral], Lungs: [Crackles bilateral at the bases] , [no accessory muscle use] Abdominal: [soft], [ nontender to palpation], [no guarding], [no appreciable organomegaly] Ext: [no gross muscle atrophy], [2+ pitting lower extremity edema], [no contractures] Neuro: [ CN II-XI grossly intact], [no focal neuro deficits] Psych: [Alert], [oriented], [appropriate affect] - Labs CBC & Chem 7: 02/07/20 05:47 02/08/20 05:46 Labs: Abnormal Lab Results - Last 24 Hours (Table) 02/08/20 Range/Units 05:46 Creatinine 1.61 H (0.66-1.25) mg/dL Microbiology - Last 24 Hours (Table) 02/07/20 12:00 Gram Stain - Preliminary Sputum Sputum Culture - Preliminary 02/05/20 14:09 Blood Culture - Preliminary Blood No Growth after 48 hours Assessment and Plan Assessment: Acute exacerbation of systolic congestive heart failure with ejection fraction 40-45% Possible Healthcare associated pneumonia, negative procalcitonin Rheumatoid arthritis Toxic metabolic encephalopathy Chronic kidney disease unknown baseline Hypertension History PE Chest x-ray show slight improvement. Plans: Continue Lasix 40 mg IV 3 times a day. Continue metoprolol by mouth. Strict intake and output take. Daily weights. Hold ELIZABETH inhibitor due to creatinine elevation. Obtain records from [place]. Follow cardiology recommendations. Infectious disease following. Pro-calcitonin negative. Sputum culture prelim negative. Culture prelim negative at 48 hours. Plans: Continue Levaquin by mouth. Continue vancomycin and cefepime IV. Albuterol neb as needed for shortness of breath and wheezing. Tylenol as needed for fever. Follow pulmon ology recommendations. Repeat chest x-ray tomorrow morning. Await COVID 19 testing. Plans: Outpatient evaluation. Avoid steroids at this time. Improving. Plans: Supportive care. Suspect CKD stage III. Plans: Avoid ELIZABETH inhibitor. Avoid nephrotoxins. Daily BMP to check creatinine with diuresis. BP 99/47. Plans: Continue metoprolol. Continue Procardia. Monitor vitals, adjust medications as necessary. Plans: Continue Xarelto. [Patient admitted for shortness of breath. Likely systolic CHF exacerbation. Possible superimposed pneumonia. Pulmonology, cardiology and infectious disease following. Patient is pending clinical improvement. Likely DC in 2-3 days.]
[2020-02-08] MEDS: LEVOFLOXACIN 750 MG TAB PO SCH (14:24)
[2020-02-08] MEDS: VANCOMYCIN 1,500 MG in SODIUM CHLORIDE 0.9% 250 ML IVPB SCH (14:25)
--- NOTE | 2020-02-08 14:27 | P.PN ---
Subjective Progress Note Date: 02/08/20 Principal diagnosis: Acute exacerbation of systolic congestive heart failure, possible healthcare acquired pneumonia 69-year-old -[place] male patient who resides in [facility], who presented to the emergency department after ending up in [place] and taking a wrong turn. Patient states he was in the [facility] for approximately 1- 2 hours, 7 shortness of breath, and cough, he was placed in isolation there, was given doxycycline and ceftriaxone and dexamethasone. COVID 19 testing was ordered however not run because the patient was leaving their facility. Patient is somewhat of a poor historian, his timeline of events is quite disorganized. His baseline mentation is not known. He states last week he was hospitalized for 4 days at [facility] for shortness of breath, and swelling in his lower extremities. He states he had a heart catheterization during that stay, the results are unknown. He is not sure whether he had pneumonia, thinks that someone told him he had acute congestive heart failure. He was discharged home on Sunday02/01/2020, and he followed up with his PCP on 02/02/2020, he was severely short of breath, and he states his pulse ox was extremely low on room air and his PCP was quite upset that he was discharged home prematurely and without oxygen. He was provided with oxygen, he was sent home. He lives with his brother, he is retired. He is , has adult children. He denies any recent travel other than to the [place], denies any contacts with any COVID 19 positive people. He states he quit smoking several years ago, did smoke a pack a day for 10 years, not normally on oxygen. Other medical history includes hypertension, hyperlipidemia, coronary artery disease, history of DVT with filter placement. Patient denied any fever or chills, he is coughing up purulent phlegm but no hemoptysis, denied any chest pain, denied any palpitations, lightheadedness or dizziness. He did note increased swelling in his bilateral lower extremities since discharge from the hospital. Chest x-ray completed in the emergency department showed numerous multifocal interstitial and alveolar opacities consideration to multifocal pneumonia, pulmonary hemorrhage or ARDS. Patient's mentation was confused on admission, patient had a neurologic evaluation, brain CT showed abnormal widening of the lateral Raoul interval, and mass effect on the proximal cervical cord just distal to the cerv ical medullary junction, chronic small vessel ischemic changes, and age-related atrophy. His EKG showed sinus rhythm with first-degree AV block possibility of left atrial enlargement, and evidence of septal infarct of undetermined age. Admission lab work showed white blood cell, 7.5, hemoglobin of 10.0, platelet count of 213, lymphocytes of 0.8, coagulation profile was within normal limits, sodium was 140, potassium is 4.7, chloride was 109, CO2 is 25, BUN was 48, creatinine is 1.45, patient states he does have chronic kidney disease, and we are not sure of his baseline GFR. Troponin was negative at 0.012, proBNP was 19658, pro-calcitonin came back at 0.12 only mildly elevated, CRP was 135, urinalysis was negative, rheumatoid factor was 72, influenza screen was negative. She was started on Levaquin and Zosyn, and we're consulted for evaluation of his abnormal chest x-ray showing multifocal airspace disease. Patient was reevaluated today on 02/07/20, feeling a bit better, breathing a bit easier, remains on oxygen at 3 L, O2 sats ration is 94%, chest x-ray is showing definite improvement in his interstitial edema patient remains afebrile over the last 24 hours. Patient had a T-max of 100 on admission and since then has been basically afebrile. CBC today showed normal WBC count continues to have lymphopenia. Electrolytes are normal, renal profile is basically the same, cre atinine is 1.50. Patient is responding quite well to diuretics. And he is empirically on antibiotics. the patient is seen today 02/08/2020 in follow-up on the selective care unit. He is currently sitting up at the bedside. Awake and alert in no acute distress. maintaining O2 saturations in the 90s on 2 L/m per nasal cannula. Afebrile. Hemodynamically stable. Currently with a loose nonproductive cough. blood culture reveals no growth to date. Sputum culture pending. Creatinine 1.61. Continued on vancomycin, cefepime and Levaquin. Remains on IV diuretics. Objective - Vital Signs Vital signs: Vital Signs Temp 99 F 02/08/20 11:17 Pulse 89 02/08/20 11:17 Resp 22 02/08/20 11:17 BP 99/47 02/08/20 11:17 Pulse Ox 94 L 02/08/20 11:17 Intake & Output 02/07/20 02/08/20 02/08/20 18:59 06:59 18:59 Intake Total 1740 540 360 Output Total 2600 400 Balance -860 140 360 Weight 85.8 kg Intake: Intake, IV Titration 350 Amount Cefepime 2 gm In Sodium 100 Chloride 0.9% 100 ml @ 200 mls/hr IVPB Q12HR ROMY Rx#:[id number] Vancomycin 1,500 mg In 250 Sodium Chloride 0.9% 250 ml @ 125 mls/hr IVPB Q16H ROMY Rx#:[id number] Oral 1390 540 360 Output: Urine 2600 400 - Exam GENERAL EXAM: Alert, pleasant 69-year-old gentleman, on 2 L nasal cannula, comfortable in no apparent distress. HEAD: Normocephalic. EYES: Normal reaction of pupils, equal size. NOSE: Clear with pink turbinates. THROAT: No erythema or exudates. NECK: No masses, no JVD. CHEST: No chest wall deformity. LUNGS: Equal air entry with crackles in the bilateral posterior bases, few scattered rhonchi. CVS: S1 and S2 normal with no audible murmur, regular rhythm. ABDOMEN: No hepatosplenomegaly, normal bowel sounds, no guarding or rigidity. SPINE: No scoliosis or deformity SKIN: No rashes CENTRAL NERVOUS SYSTEM: No focal deficits, tone is normal in all 4 extremities. EXTREMITIES: There is no peripheral edema. No clubbing, no cyanosis. Peripheral pulses are intact. - Labs CBC & Chem 7: 02/07/20 05:47 02/08/20 05:46 Labs: Abnormal Lab Results - Last 24 Hours (Table) 02/08/20 Range/Units 05:46 Creatinine 1.61 H (0.66-1.25) mg/dL Microbiology - Last 24 Hours (Table) 02/07/20 12:00 Gram Stain - Preliminary Sputum Sputum Culture - Preliminary 02/05/20 14:09 Blood Culture - Preliminary Blood No Growth after 48 hours Assessment and Plan Assessment: #1. Acute exacerbation of systolic congestive heart failure, improving based on the clinical findings and based on the chest x-ray findings on follow-up, but definitely not resolved yet. #2. Possible healthcare acquired pneumonia, in view of recent hospitalization at [facility]. Chest x-ray showed numerous multifocal interstitial and alveolar opacities, with consideration for multifocal pneumonia, #3. Recent hospitalization at [facility], according to the patient he was discharged on 02/01/2020, we'll try to obtain records #4. Altered mental status and confusion, patient has been evaluated by neurology, brain CT showed abnormal widening of the lateral Raoul interval, and mass effect on the proximal cervical cord. Neurology tried to obtain records from [facility] before proceeding with carotid Dopplers and MRI of the brain #5. Chronic kidney disease, baseline GFR is unknown #6. Pending test for COVID 19, in view of patient's symptoms of cough and shortness of breath, but no recent history of travel or exposure to COVID 19 positive people #7. Coronary artery disease #8. Hypertension #9. Hyperlipidemia #10. History of DVT with placement of IVC filter, and oral anticoagulation with Xarelto #11. Former smoker, in remission for many years, smoked a pack a day for 10 years Plan: The patient was seen and evaluated by Dr. Barragan Improving clinically Antibiotics per infectious disease Continue to diurese Follow-up chest x-ray in a.m. Continue to follow I, the cosigning physician, performed a history & physical examination of the patient. Lungs sounds with crackles in the posterior bases, few scattered rhonchi. Maintaining good O2 saturations in the 90s on 2 L/m per nasal cannula I discussed the assessment and plan of care with my nurse practitioner, Nicole Miller. I attest to the above note as dictated by her.
--- NOTE | 2020-02-08 20:02 | PN ---
PROGRESS NOTE DATE OF SERVICE: 02/08/2020 REASON FOR FOLLOWUP: Pneumonia. INTERVAL HISTORY: The patient is currently afebrile. The patient is breathing more comfortably. Patient denies having any chest pain, cough increased intensity, green sputum. No nausea, vomiting. No abdominal pain. No diarrhea. PHYSICAL EXAMINATION: Blood pressure 94/52 with a pulse of 87, temperature 98.3. He is 100% on 2 L nasal cannula. General description is an elderly male up in the bed in no distress. Respiratory system: Unlabored breathing. Decreased breath sounds in the bases. No wheeze. Heart S1, S2. Regular rate and rhythm. Abdomen soft, no tenderness. LABS: Hemoglobin is 10.1, white count 8.3. BUN of 31, creatinine 1.50. Sputum cultures currently pending. DIAGNOSTIC IMPRESSION AND PLAN: Patient admitted to the hospital with a fever, mental status changes and bilateral infiltrates with concern for pneumonia possible nosocomial. The patient is currently covered with Cefepime and Vancomycin, to continue while waiting for the culture to finalize. Also waiting for Covid-19 testing to continue . MMODL / IJN: [id number] /
[2020-02-08] MEDS: ATORVASTATIN 40 MG TAB PO SCH (21:04)
[2020-02-09] MEDS: FUROSEMIDE 10 MG/ML 4 ML VIAL IV SCH ×3 (00:14→17:20)
[2020-02-09] MEDS: ALPRAZolam 0.5 MG TAB PO PRN (00:28)
[2020-02-09] MEDS ORDERED: VANCOMYCIN TROUGH DUE 1 EACH MISC MISCELLANE ONE (05:00)
[2020-02-09] MEDS: VANCOMYCIN 1,500 MG in SODIUM CHLORIDE 0.9% 250 ML IVPB SCH (06:49)
[2020-02-09] MEDS: TAMSULOSIN 0.4 MG CAP.ER.24H PO SCH (06:51)
--- NOTE | 2020-02-09 07:29 | XR ---
EXAMINATION TYPE: XR chest 1V portable DATE OF EXAM: 02/09/2020 Comparison: 02/07/2020 Clinical History: 69-year-old male CHF/pneumonia Findings: Heart mildly enlarged. Diffuse interstitial opacity. More patchy midlung opacities, right greater robbie n left show slight interval improvement. No sizable effusion. Impression: Interstitial infiltrates remain. Minimal improved aeration in the right midlung.
[2020-02-09] MEDS: IPRATROPIUM-ALBUTEROL 3 ML NEB INHALATION SCH ×3 (07:40→20:00)
[2020-02-09] MEDS: ALLOPURINOL 300 MG TAB PO SCH (08:30)
[2020-02-09] MEDS: ASPIRIN 81 MG PO SCH (08:30)
[2020-02-09] MEDS: CEFEPIME 2 GM in SODIUM CHLORIDE 0.9% 100 ML IVPB SCH ×2 (08:30→20:53)
[2020-02-09] MEDS: RIVAROXABAN 15 MG TAB PO SCH (08:31)
[2020-02-09] MEDS: METOPROLOL SUCCINATE (ER) 25 MG TAB.ER.24H PO SCH (08:31)
--- NOTE | 2020-02-09 10:22 | CDI ---
Documentation Clarification Form Date: 02/09/2020 09:42:00 AM From: Emily Joshi RN, CCDS Admit Date: 02/05/2020 04:01:00 PM Patient Name: Chriss Lucas Visit Number: [id number] Discharge Date: ATTENTION: The Clinical Documentation Specialists (CDI) and [facility] Coding Staff appreciate your assistance in clarifying documentation. Please respond to the clarification below the line at the bottom and electronically sign. The CDI & [facility] Coding staff will review the response and follow-up if needed. Please note: Queries are made part of the Legal Health Record. If you have any questions, please contact the author of this message via ITS. Dr. Ariella Marroquin/Dr.Erica Floyd The diagnosis Sepsis was documented in the H&P on 02/04, but is not noted in subsequent documentation and clarification is requested to rule sepsis in or out, or treated and resolved. History/Risk Factors: Interstitial pneumonia, Heart failure, Hypertension Clinical Indicators: 69-year-old male who present to ED with shortness of breath. ED exam found intermittent tachycardia and tachypenia. Vital signs (02/04 16:10): 116/79 101 25 94 % RA 02/04 Labs: WBC 7.5, Lactic acid 1.2 02/04 Chest x-ray showing multifical interstitial and alveolar opacities. H&P: meets sepsis criteria care. He is tachycardic, He is tachypenic. He is lymphopenic. There is a positive source of infection on chest x-ray. Lactic acid was negative. Treatment: Maxipime 2 gm IV Q 12hrs Levaquin 750 IV, Q 24(now PO) Vancomycin 1,500 mg IV Q16 hrs Please clarify if the Sepsis was: Present/active this admission Treated and resolved this admission Ruled out Other, please specify Clinically unable to determine (Last Query Form Revision: July 2019) Sepsis ruled out MTDD
[2020-02-09] MEDS: LEVOFLOXACIN 750 MG TAB PO SCH (10:28)
--- NOTE | 2020-02-09 11:31 | P.PN ---
Subjective Progress Note Date: 02/09/20 Principal diagnosis: Acute exacerbation of systolic congestive heart failure, and possible healthcare acquired pneumonia 69-year-old -[place] male patient who resides in [facility], who presented to the emergency department after ending up in [place] and taking a wr neel turn. Patient states he was in the [facility] for approximately 1-2 hours, 7 shortness of breath, and cough, he was placed in isolation there, was given doxycycline and ceftriaxone and dexamethasone. COVID 19 testing was ordered however not run because the patient was leaving their facility. Patient is somewhat of a poor historian, his timeline of events is quite disorganized. His baseline mentation is not known. He states last week he was hospitalized for 4 days at [facility] for shortness of breath, and swelling in his lower extremities. He states he had a heart catheterization during that stay, the results are unknown. He is not sure whether he had pneumonia, thinks that someone told him he had acute congestive heart failure. He was discharged home on Sunday02/01/2020, and he followed up with his PCP on 02/02/2020, he was severely short of breath, and he states his pulse ox was extremely low on room air and his PCP was quite upset that he was discharged home prematurely and without oxygen. He was provided with oxygen, he was sent home. He lives with his brother, he is retired. He is , has adult children. He denies any recent travel other than [place], denies any contacts with any COVID 19 positive people. He states he quit smoking several years ago, did smoke a pack a day for 10 years, not normally on oxygen. Other medical history includes hypertension, hyperlipidemia, coronary artery disease, history of DVT with filter placement. Patient denied any fever or chills, he is coughing up purulent phlegm but no hemoptysis, denied any chest pain, denied any palpitations, lightheadedness or dizziness. He did note increased swelling in his bilateral lower extremities since discharge from the hospital. Chest x-ray completed in the emergency department showed numerous multifocal interstitial and alveolar opacities consideration to multifocal pneumonia, pulmonary hemorrhage or ARDS. 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 His EKG showed sinus rhythm with first-degree AV block possibility of left atrial enlargement, and evidence of septal infarct of undetermined age. Admission lab work showed white blood cell, 7.5, hemoglobin of 10.0, platelet count of 213, lymphocytes of 0.8, coagulation profile was within normal limits, sodium was 140, potassium is 4.7, chloride was 109, CO2 is 25, BUN was 48, creatinine is 1.45, patient states he does have chronic kidney disease, and we are not sure of his baseline GFR. Troponin was negative at 0.012, proBNP was 89323, pro-calcitonin came back at 0.12 only mildly elevated, CRP was 135, urinalysis was negative, rheumatoid factor was 72, influenza screen was negative. She was started on Levaquin and Zosyn, and we're consulted for evaluation of his abnormal chest x-ray showing multifocal airspace disease. Patient was reevaluated today on 02/07/20, feeling a bit better, breathing a bit easier, remains on oxygen at 3 L, O2 sats ration is 94%, chest x-ray is showing definite improvement in his interstitial edema patient remains afebrile over the last 24 hours. Patient had a T-max of 100 on admission and since then has been basically afebrile. CBC today showed normal WBC count continues to have lymphopenia. Electrolytes are normal, renal profile is basically the same, creatinine is 1.50. Patient is responding quite well to diuretics. And he is empirically on antibiotics. the patient is seen today 02/08/2020 in follow-up on the selective care unit. He is currently sitting up at the bedside. Awake and alert in no acute distress. maintaining O2 saturations in the 90s on 2 L/m per nasal cannula. Afebrile. Hemodynamically stable. Currently with a loose nonproductive cough. blood culture reveals no growth to date. Sputum culture pending. Creatinine 1.61. Continued on vancomycin, cefepime and Levaquin. Remains on IV diuretics. On or 02/09/2020 patient seen in follow-up on selective care unit, he remains in isolation as his COVID 19 testing is still pending at this time, his oxygenation has improved, patient's FiO2 is down to 1 L, and his pulse ox is 100%, he remains on IV diuretics, and he has produced 3000 and the in urine output over the last 24 hours, and he is in -720 ML balance over the last 24 hours, lower extremity edema has improved, and patient started developing some wrinkled skin on bilateral lower extremities. Mycoplasma IgM came back negative at 0.02, blood and sputum cultures showed no growth, lung sounds reveal mild crackles at bilateral bases, improved lung sounds, patient still has a little phlegm production, less congested on today's exam. He remains on combination of cefepime and vancomycin, and infectious disease service is following Objective - Vital Signs Vital signs: Vital Signs Temp 98.3 F 02/09/20 08:00 Pulse 94 02/09/20 08:00 Resp 18 02/09/20 08:00 BP 89/54 02/09/20 08:00 Pulse Ox 100 02/09/20 08:00 Intake & Output 02/08/20 02/09/20 02/09/20 18:59 06:59 18:59 Intake Total 954 Output Total 1550 Balance 954 -1550 Weight 86 kg Intake: Oral 954 Output: Urine 1550 Other: Voiding Method Urinal # Voids 2 - Exam GENERAL EXAM: Alert, very pleasant, thin, 69-year-old -[place] male on 1 L of oxygen with a pulse ox of 100%, mild to moderate dyspnea with conversation, frequent congested productive cough with large amounts of purulent sputum comfortable in no apparent distress. HEAD: Normocephalic/atraumatic. EYES: Normal reaction of pupils, equal size. Conjunctiva pink, sclera white. NOSE: Clear with pink turbinates. THROAT: No erythema or exudates. NECK: No masses, no JVD, no thyroid enlargement, no adenopathy. CHEST: No chest wall deformity. Symmetrical expansion. LUNGS: Equal air entry with diffuse crackles and bilateral mid to lower lobes CVS: Regular rate and rhythm, normal S1 and S2, no gallops, no murmurs, no rubs ABDOMEN: Soft, nontender. No hepatosplenomegaly, normal bowel sounds, no guard ing or rigidity. EXTREMITIES: No clubbing, 1-2+ lower extremity edema, no cyanosis, 2+ pulses and upper and lower extremities. MUSCULOSKELETAL: Muscle strength and tone normal. SPINE: No scoliosis or deformity SKIN: No rashes CENTRAL NERVOUS SYSTEM: Alert and oriented -2, person, place. No focal d eficits, tone is normal in all 4 extremities. Patient thought the month was 2019, then he thought it was February, knew the president. He passed the CAM-ICU score, with 2 mistakes on the inattention, and one mistake on the disorganized thinking portion of the test. PSYCHIATRIC: Alert and oriented -2 Appropriate affect. Intact judgment and insight. - Labs CBC & Chem 7: 02/07/20 05:47 02/09/20 05:30 Labs: Abnormal Lab Results - Last 24 Hours (Table) 02/09/20 Range/Units 05:30 Creatinine 1.54 H (0.66-1.25) mg/dL Microbiology - Last 24 Hours (Table) 02/07/20 12:00 Gram Stain - Final Sputum Sputum Culture - Final 02/05/20 14:09 Blood Culture - Preliminary Blood No Growth after 72 hours Assessment and Plan Plan: Assessment: #1. Acute exacerbation of systolic congestive heart failure, chest x-ray showed mild to moderate impairment of the left ventricular systolic function with an EF of 40-45%, severe concentric left ventricular hypertrophy, mild aortic valve sclerosis, moderate aortic regurgitation, moderate aortic stenosis, moderate MR, moderate TR, [id number] pulmonary hypertension with right-sided pressures of 44.9 mmHg. And there was severe enlargement of the left atrium #2. Possible healthcare acquired pneumonia, in view of recent hospitalization at [facility]. Chest x-ray showed numerous multifocal interstitial and alveolar opacities, with consideration for multifocal pneumonia, pulmonary hemorrhage or ARDS. Pro-calcitonin came back at 0.12, slightly elevated, patient has been afebrile, however he is producing large amounts of purulent sputum. #3. Recent hospitalization at [facility], according to the patient he was discharged on 02/01/2020, we'll try to obtain records #4. Altered mental status and confusion, patient has been evaluated by neurology, brain CT showed abnormal widening of the lateral Raoul interval, and mass effect on the proximal cervical cord. Neurology tried to obtain records from [facility] before proceeding with carotid Dopplers and MRI of the brain #5. Chronic kidney disease, baseline GFR is unknown #6. Pending test for COVID 19, in view of patient's symptoms of cough and shortness of breath, but no recent history of travel or exposure to COVID 19 positive people #7. Coronary artery disease #8. Hypertension #9. Hyperlipidemia #10. History of DVT with placement of IVC filter, and oral anticoagulation with Xarelto #11. Former smoker, in remission for many years, smoked a pack a day for 10 years Plan: No growth on the sputum culture, mycoplasma IgM is negative, patient has been afebrile, is maintaining negative fluid balance, today's chest x-ray has been reviewed still showing residual interstitial infiltrates, and some minimal improvement in aeration of the right midlung. antibiotics per ID service recommendations, obtain electrolytes and renal profile. Weaning FiO2, COVID 19 he still pending at this time. We'll continue to follow I performed a history & physical examination of the patient and discussed their management with my nurse practitioner, Elvia Johnson. I reviewed the nurse practitioner's note and agree with the documented findings and plan of care. Lung sounds are positive for coarse crackles in both lungs. The findings and the impression was discussed with the patient. I attest to the documentation by the nurse practitioner. Time with Patient: Less than 30
[2020-02-09 11:57] LABS: Glucose,Whole Blood 90 mg/dL (75-99)
[2020-02-09] MEDS ORDERED: NIFEdipine XL 30 MG TAB.ER.24 PO SCH (12:00)
--- NOTE | 2020-02-09 15:44 | P.PN ---
Subjective Progress Note Date: 02/09/20 Patient laying comfortably in the bed. Offers no new complaints. Sometimes appears irritable. No new focal symptoms. Still awaiting records from [facility]. Patient's records from [facility] indicates that [place] [facility] the [facility] to [employer], appears to be confused, disheveled, denies drug or alcohol use. He had disjointed conversation. Patient had mentioned that over the past 3 weeks, he has been visiting [facility] for problems breathing, peripheral edema in the lower limb, was noted to be short of breath on exertion and saturation would decrease while talking for a minute or more. He would cough intermittent. Suspected Covid. P atient's troponin was elevated 47 chest x-ray showed patchy bilateral perihilar and upper lung zone air space opacities which may represent air space disease and pneumonia. Ammonia is normal 13. Electrolytes normal. Renal functions normal, liver panel and lipase normal. CBC with WBC 8.2 hemoglobin 88 and platelets were 15. Lymphocytes are low 0.9. Objective - Vital Signs Vital signs: Vital Signs Temp 98.3 F 02/09/20 08:00 Pulse 94 02/09/20 08:00 Resp 18 02/09/20 08:00 BP 104/57 02/09/20 11:45 Pulse Ox 100 02/09/20 08:00 Intake & Output 02/08/20 02/09/20 02/09/20 18:59 06:59 18:59 Intake Total 954 710 Output Total 1550 1120 Balance 954 -1550 -410 Weight 86 kg Intake: Intake, IV Titration 350 Amount Cefepime 2 gm In Sodium 100 Chloride 0.9% 100 ml @ 200 mls/hr IVPB Q12HR ROMY Rx#:[id number] Vancomycin 1,500 mg In 250 Sodium Chloride 0.9% 250 ml @ 125 mls/hr IVPB Q16H ROMY Rx#:[id number] Oral 954 360 Output: Urine 1550 1120 Other: Voiding Method Urinal # Voids 2 1 # Bowel Movements 0 - Exam No change. More alert and awake. Moves all 4 extremities equally. - Labs CBC & Chem 7: 02/07/20 05:47 02/09/20 05:30 Labs: Abnormal Lab Results - Last 24 Hours (Table) 02/09/20 Range/Units 05:30 Creatinine 1.54 H (0.66-1.25) mg/dL Microbiology - Last 24 Hours (Table) 02/07/20 12:00 Gram Stain - Final Sputum Sputum Culture - Final 02/05/20 14:09 Blood Culture - Preliminary Blood No Growth after 72 hours Assessment and Plan Assessment: * Altered mental status, possible toxic metabolic encephalopathy. * Abnormal brain CT scan, with evidence of old/chronic watershed ischemic strokes in posterior parietal lobes. Rule out carotid stenosis. * Abnormal widening of the lateral dens with mass effect on the proximal cervical cord. Probably due to rheumatoid arthritis. * Rheumatoid arthritis, with elevated rheumatoid factor and CCP antibodies. * Abnormal chest x-ray with evidence of bilateral interstitial infiltrates. Rule out CHF versus pneumonia, highly suspicious for Covid-19. Influenza screen negative. * Peripheral edema. Plan: * We will check carotid Doppler to rule out stenosis and an EEG. * 2-D echo showed EF 40-45%. Sinus rhythm, severe concentric LVH, left atrium is severely dilated, moderate aortic regurgitation. Moderate mitral regurgitation. * Hemoglobin A1c 5.5, fasting a.m. lipid panel pending. B12 283, folate 8.8, TSH 2.45, rheumatoid factor +72, CCP antibody also elevated 9.3, consistent with rheumatoid arthritis. Procalcitonin elevated 0.12. Pro-BNP elevated 10,100 * Patient's rheumatoid factor is elevated. Abnormality noted on the dens, likely related to rheumatoid arthritis. Consider rheumatology consultation. * Your medical management. * Continue aspirin 81 mg daily for stroke prevention.
--- NOTE | 2020-02-09 16:51 | P.PN ---
Subjective Progress Note Date: 02/09/20 Principal diagnosis: Shortness of breath Patient was seen and examined. No acute events overnight. Patient reports improvement in his breathing since admission. He does report a cough productive of clear sputum. He denies any chest pain or palpitations. No nausea or vomiting. No fever or chills. Overall less confused than on admission. Objective - Vital Signs Vital signs: Vital Signs Temp 97.4 F L 02/09/20 15:00 Pulse 83 02/09/20 15:00 Resp 18 02/09/20 15:00 BP 87/54 02/09/20 15:00 Pulse Ox 96 02/09/20 15:00 Intake & Output 02/08/20 02/09/20 02/09/20 18:59 06:59 18:59 Intake Total 954 710 Output Total 1550 1120 Balance 954 -1550 -410 Weight 86 kg Intake: Intake, IV Titration 350 Amount Cefepime 2 gm In Sodium 100 Chloride 0.9% 100 ml @ 200 mls/hr IVPB Q12HR ROMY Rx#:[id number] Vancomycin 1,500 mg In 250 Sodium Chloride 0.9% 250 ml @ 125 mls/hr IVPB Q16H ROMY Rx#:[id number] Oral 954 360 Output: Urine 1550 1120 Other: Voiding Method Urinal # Voids 2 1 # Bowel Movements 0 - Exam General: [non toxic], [no distress], [appears at stated age] Derm: [warm], [dry] Head: [atraumatic], [normocephalic], [symmetric] Eyes: [EOMI], [no lid lag], [anicteric sclera] Mouth: [no lip lesion], [mucus membranes moist] Cardiovascular: [S1S2 reg], [systolic ejection murmur], [positive posterior ti bial pulse bilateral], Lungs: [Crackles bilateral at the bases, improved] , [no accessory muscle use] Abdominal: [soft], [ nontender to palpation], [no guarding], [no appreciable organomegaly] Ext: [no gross muscle atrophy], [1 + pitting lower extremity edema, improved], [no contractures] Neuro: [no focal neuro deficits] Psych: [Alert], [oriented], [appropriate affect] - Labs CBC & Chem 7: 02/07/20 05:47 02/09/20 05:30 Labs: Abnormal Lab Results - Last 24 Hours (Table) 02/09/20 Range/Units 05:30 Creatinine 1.54 H (0.66-1.25) mg/dL Microbiology - Last 24 Hours (Table) 02/05/20 14:09 Blood Culture - Preliminary Blood No Growth after 96 hours 02/07/20 12:00 Gram Stain - Final Sputum Sputum Culture - Final Assessment and Plan Assessment: Acute exacerbation of systolic congestive heart failure with ejection fraction 40-45% Possible Healthcare associated pneumonia, negative procalcitonin Rheumatoid arthritis Toxic metabolic encephalopathy Chronic kidney disease unknown baseline Hypertension History PE Chest x-ray show slight improvement. Plans: Continue Lasix 40 mg IV 3 times a day. Continue metoprolol by mouth. Strict intake and output take. Daily weights. Hold ELIZABETH inhibitor due to creatinine elevation. Obtain records from [place]. Follow cardiology recommendations. Infectious disease following. Pro-calcitonin negative. Sputum culture prelim negative. Legionella negative. Mycoplasma negative. Culture prelim negative at 96 hours. Plans: Continue Levaquin by mouth. Continue vancomycin and cefepime IV. Albuterol neb as needed for shortness of breath and wheezing. Tylenol as needed for fever. Follow pulmonology recommendations. Repeat chest x-ray tomorrow morning. Await COVID 19 testing. Plans: Outpatient evaluation. Avoid steroids at this time. Improving. Plans: Supportive care. Suspect CKD stage III. Creatinine improved from 1.61-1.54. Plans: Avoid ELIZABETH inhibitor. Avoid nephrotoxins. Daily BMP to check creatinine with diuresis. BP 87/54. Plans: Continue metoprolol. Discontinue Procardia. Monitor vitals, adjust medications as necessary. Plans: Continue Xarelto. [Patient admitted for shortness of breath. Likely systolic CHF exacerbation. Possible superimposed pneumonia. Pulmonology, cardiology and infectious disease following. Patient is pending clinical improvement. Likely DC in 1-2 days.]
[2020-02-09] MEDS: HYDROcodone/APAP 5-325MG 1 EACH TAB PO PRN (17:20)
--- NOTE | 2020-02-09 17:29 | US ---
EXAMINATION TYPE: US carotid duplex BILAT DATE OF EXAM: 02/09/2020 COMPARISON: None. CLINICAL HISTORY: altered mental status. Weakness. EXAM MEASUREMENTS: RIGHT: Peak Systolic Velocity (PSV) cm/sec ----- Right CCA: 30.5 ----- Right ICA: 57.2 ----- Right ECA: 34.6 ICA/CCA ratio: 1.9 RIGHT: End Diastole cm/sec ----- Right CCA: 0.0 ----- Right ICA: 21.5 ----- Right ECA: 0.0 LEFT: Peak Systolic Velocity (PSV) cm/sec ----- Left CCA: 30.2 ----- Left ICA: 59.8 ----- Left ECA: 41.5 ICA/CCA ratio: 2.0 LEFT: End Diastole cm/sec ----- Left CCA: 12.7 ----- Left ICA: 32.8 ----- Left ECA: 0.0 VERTEBRALS (direction of flow): Right Vertebral: Antegrade Left Vertebral: Antegrade Rhythm: Arrhythmia Grayscale images show [id number] peripheral plaque centered at bilateral carotid bulb level but velocity measurements and ratios remain within normal limits in the visualized portion of both inter nal carotid arteries. IMPRESSION: No hemodynamic significant stenosis seen in either internal carotid artery. Arrhythmia documented by technologist during real-time scanning. Correlate clinically. Criteria for Assigning % of Stenosis / Diameter reduction (Estimation based on the indirect measurements of the internal carotid artery velocities (ICA PSV). 1. Normal (no stenosis)=ICA PSV < 125 cm/s: ratio < 2.0: ICA EDV<40 cm/s. 2. Less than 50% stenosis=ICA PSV < 125 cm/s: ratio < 2.0: ICA EDV<40 cm/s. 3. 50 to 69% stenosis=ICA PSV of 125 to 230 cm/s: ration 2.0 ? 4.0: ICA EDV 40-100 cm/s. 4. Greater than 70% stenosis to near occlusion= ICA PSV > 230 cm/s: ratio > 4.0: ICA EDV > 100 cm/s. 5. Near occlusion= ICA PSV velocities may be low or undetectable: variable ratio and ICA EDV. 6. Total occlusion=unable to detect flow.
--- NOTE | 2020-02-09 18:13 | PN ---
PROGRESS NOTE DATE OF SERVICE: 02/09/2020 REASON FOR FOLLOWUP: Pneumonia. INTERVAL HISTORY: The patient is currently afebrile. The patient has been breathing comfortably. The patient's cough has decreased in intensity. No chest pain. No nausea. No abdominal pain or diarrhea. PHYSICAL EXAMINATION: Blood pressure 104/57 with a pulse of 94, temperature 98.3. He is 100% on 1 L nasal cannula. General description is an elderly male up in the room in no distress. RESPIRATORY SYSTEM: Unlabored breathing with decreased breath sounds at the base. No wheeze. HEART: S1, S2. Regular rate and rhythm. ABDOMEN: Soft. No tenderness. LABS: Hemoglobin is 10.2, white count 8.3. Creatinine is 1.54. Sputum has been usual respiratory jamaal. DIAGNOSTIC IMPRESSION AND PLAN: Patient admitted to hospital with pneumonia, possibly community-acquired. Sputum has been negative for a resistant pathogen. Patient currently on cefepime and vancomycin; to continue. Will discontinue the vancomycin, as no MRSA has been grown. Once the COVID-19 testing is finalized, he may be able to go home on oral antibiotics. Continue with supportive care. MMODL / IJN: [id number] /
[2020-02-09] MEDS: ATORVASTATIN 40 MG TAB PO SCH (20:53)
[2020-02-10] MEDS: FUROSEMIDE 10 MG/ML 4 ML VIAL IV SCH ×2 (00:57→08:14)
[2020-02-10] MEDS: ALPRAZolam 0.5 MG TAB PO PRN (00:59)
[2020-02-10 04:46] VITALS: RESP 18
[2020-02-10] MEDS: TAMSULOSIN 0.4 MG CAP.ER.24H PO SCH (07:00)
[2020-02-10] MEDS: IPRATROPIUM-ALBUTEROL 3 ML NEB INHALATION SCH ×2 (07:07→13:26)
[2020-02-10 08:05] LABS: Anisocytosis Slight; Basophils % (A) 0 %; Eosinophils # (A) 0.5 k/uL (0-0.7); Eosinophils % (A) 9 %; HCT 30.2 % (39.0-53.0); HGB 8.9 gm/dL (13.0-17.5); Hypochromasia Marked; Lymphocytes # (A) 0.8 k/uL (1.0-4.8); Lymphocytes % (A) 16 %; MCH 23.8 pg (25.0-35.0); MCHC 29.3 g/dL (31.0-37.0); Mean Platelet Volume 7.5; Microcytosis Slight; Monocytes # (A) 0.3 k/uL (0-1.0); Monocytes % (A) 6 %; Neutrophils # (A) 3.2 k/uL (1.3-7.7); Neutrophils % (A) 66 %; Platelet Count 227 k/uL (150-450); RBC 3.72 m/uL (4.30-5.90); RDW 19.2 % (11.5-15.5); WBC 4.9 k/uL (3.8-10.6)
[2020-02-10] MEDS: ASPIRIN 81 MG PO SCH (08:13)
[2020-02-10] MEDS: ALLOPURINOL 300 MG TAB PO SCH (08:13)
[2020-02-10] MEDS: RIVAROXABAN 15 MG TAB PO SCH (08:13)
[2020-02-10] MEDS: METOPROLOL SUCCINATE (ER) 25 MG TAB.ER.24H PO SCH (08:13)
[2020-02-10] MEDS: CEFEPIME 2 GM in SODIUM CHLORIDE 0.9% 100 ML IVPB SCH (08:14)
[2020-02-10] MEDS: HYDROcodone/APAP 5-325MG 1 EACH TAB PO PRN (08:15)
[2020-02-10 08:28] LABS: Magnesium 2.2 mg/dL (1.6-2.3); Potassium 4.2 mmol/L (3.5-5.1)
[2020-02-10] MEDS ORDERED: NIFEdipine 10 MG CAP PO SCH (09:00)
[2020-02-10 09:39] VITALS: BP 108/55; PULSE 93; TEMP 98.1
--- NOTE | 2020-02-10 10:10 | P.DS ---
Providers Date of admission: 02/05/20 16:01 Expected date of discharge: 02/10/20 Attending physician: Mandi Oliver MD Consults: 02/05/20 16:02 Consult Physician Urgent Consulting Provider: Ronnie Barragan Consult Reason/Comments: pulmonary infiltrates Do you want consulting provider notified?: Yes 02/05/20 16:03 Consult Physician Urgent Consulting Provider: Sarah Tavares Consult Reason/Comments: ams Do you want consulting provider notified?: Yes 02/05/20 17:17 Consult Physician Urgent Consulting Provider: Akash Khan Consult Reason/Comments: Pulmonary infiltrates Do you want consulting provider notified?: Already Contacted Primary care physician: Physician Nonstaff Hospital Course: Discharge Diagnosis: Acute exacerbation of systolic congestive heart failure with ejection fraction 40-45% associated with valvular heart disease with moderate aortic stenosis with regurgitation, moderate tricuspid regurgitation, moderate mitral regurgitation, and mild to moderate pulmonary hypertension. Possible Healthcare associated pneumonia, doubt bacterial as procalcitonin is negative Rheumatoid arthritis Toxic metabolic encephalopathy, resolved Chronic kidney disease, unknown baseline creatinine - Suspect CKD stage III Hypertension Dyslipidemia CAD Hx of DVT Hospital Course: Patient is a 69-year-old -Mongol[place] male male past medical history of DVT with filter, possible prior congestive heart failure, hypertension, and dyslipidemia who presented to the emergency department for shortness of breath. Apparently he was diagnosed with bilateral interstitial pneumonia in [place], but [place] to [place]. Apparently he is unsure why he had up in [place] and states he was trying to go to [place]. On arrival here he was afebrile with normal vital signs. Initial labs showed anemia with hemoglobin 10, lymphocytes 0.8, BUN 48, creatinine 1.45, BNP 10,100, albumin 3.1, pro calcitonin was normal at 0.12. TSH was normal. He underwent a chest x-ray which showed multifocal infiltrates with alveolar opacities and concern for multifocal pneumonia with hemorrhage or ARDS. CT head showed abnormal widening of the lateral Dens with mass effect on proximal cervical cord. He is admitted for possible viral pneumonia. Influenza A and B were negative. He was seen by neurology who had concern for possible rheumatoid arthritis due to the low widening of the lateral tendons with maximum effect on the proximal cervical cord. They recommended a rheumatoid factor and anti-CCP both of which are abnormal. When patient was more alert he was able to tell us that he has known rheumatoid arthritis for 4 years. Repeat chest x-ray the next day was unchanged. Echocardiogram showed ejection fraction of 40-45% with severe concentric LVH as well as moderate mitral and tricuspid regurg associated with moderate aortic stenosis. He was treated for acute exacerbation of CHF and health care associated pneumonia. He did well with continued diuresis and antibiotics. He was able to come off oxygen. He was cleared by pulmonary and ID for discharge. He is aware that his COVID-19 is pending and he needs to continue with home isolation. He will need to take his medications. 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 Will need BB maximized and possible ACEI added as outpatient if Cr can tolerate. Patient seen and examined at bedside. No chest pain, Breathing better, still production cough-mostly if laying flat. Edema is getting better. Vital signs reviewed and stable. General: non toxic, no distress, appears at stated age Derm: warm, dry Head: atraumatic, normocephalic, symmetric Eyes: EOMI, no lid lag, anicteric sclera Mouth: no lip lesion, mucus membranes moist Cardiovascular: S1S2 reg with faint murmur, positive posterior tibial pulse bilateral, Lungs: Decreased bs bilateral , no accessory muscle use Abdominal: soft, nontender to palpation, no guarding, no appreciable organomegaly Ext: no gross muscle atrophy, no edema, no contractures Neuro: CN II-XI grossly intact, no focal neuro deficits Psych: Alert, oriented, appropriate affect A total of 35 minutes of time were spent preparing this complex discharge summary . Patient Condition at Discharge: Stable Plan - Discharge Summary New Discharge Prescriptions: New Cefuroxime Axetil [Ceftin] 500 mg PO BID 3 Days #6 tab Furosemide [Lasix] 40 mg PO BID #30 tablet NIFEdipine XL [Procardia XL] 30 mg PO DAILY #30 tab Potassium Chloride ER [K-Dur 10] 10 meq PO DAILY #15 tab Continue Allopurinol [Zyloprim] 300 mg PO DAILY Tamsulosin [Flomax] 0.4 mg PO AC-BRKFST Rivaroxaban [Xarelto] 15 mg PO DAILY Azelastine HCl 1 spray EA NOSTRIL BID Albuterol Sulfate [Albuterol Sulfate Hfa] 2 puff PO RT-Q4H PRN PRN Reason: Shortness Of Breath Metoprolol Succinate (ER) [Toprol XL] 25 mg PO DAILY Ipratropium/Albuterol Sulfate [Combivent Respimat Inhaler] 1 puff INHALATION RT-TID Atorvastatin [Lipitor] 40 mg PO HS Aspirin EC [Ecotrin Low Dose] 81 mg PO DAILY ALPRAZolam [Xanax] 0.5 mg PO HS PRN PRN Reason: Insomnia HYDROcodone/APAP 10-325MG [Webster 10-325] 1 tab PO BID PRN PRN Reason: Pain Discontinued NIFEdipine XL [Procardia Xl] 60 mg PO DAILY Furosemide [Lasix] 20 mg PO BID Discharge Medication List ALPRAZolam [Xanax] 0.5 mg PO HS PRN 02/05/20 [History] Albuterol Sulfate [Albuterol Sulfate Hfa] 2 puff PO RT-Q4H PRN 02/05/20 [History] Allopurinol [Zyloprim] 300 mg PO DAILY 02/05/20 [History] Aspirin EC [Ecotrin Low Dose] 81 mg PO DAILY 02/05/20 [History] Atorvastatin [Lipitor] 40 mg PO HS 02/05/20 [History] Azelastine HCl 1 spray EA NOSTRIL BID 02/05/20 [History] HYDROcodone/APAP 10-325MG [Webster 10-325] 1 tab PO BID PRN 02/05/20 [History] Ipratropium/Albuterol Sulfate [Combivent Respimat Inhaler] 1 puff INHALATION RT- TID 02/05/20 [History] Metoprolol Succinate (ER) [Toprol XL] 25 mg PO DAILY 02/05/20 [History] Rivaroxaban [Xarelto] 15 mg PO DAILY 02/05/20 [History] Tamsulosin [Flomax] 0.4 mg PO AC-BRKFST 02/05/20 [History] Cefuroxime Axetil [Ceftin] 500 mg PO BID 3 Days #6 tab 02/10/20 [Rx] Furosemide [Lasix] 40 mg PO BID #30 tablet 02/10/20 [Rx] NIFEdipine XL [Procardia XL] 30 mg PO DAILY #30 tab 02/10/20 [Rx] Potassium Chloride ER [K-Dur 10] 10 meq PO DAILY #15 tab 02/10/20 [Rx] Follow up Appointment(s)/Referral(s): Nonstaff,Physician [Primary Care Provider] - 1-2 days Activity/Diet/Wound Care/Special Instructions: Activity: as tolerated Diet: Low sodium diet, 1.5 L fluid restriction Special Instructions: Consider repeat renal function at your pcp appointment COVID-19 instructions given Discharge Disposition: HOME SELF-CARE
--- NOTE | 2020-02-10 10:44 | P.PN ---
Subjective Progress Note Date: 02/10/20 Principal diagnosis: Acute exacerbation of systolic congestive heart failure, possible healthcare acquired pneumonia 69-year-old -[place] male patient who resides in [facility], who presented to the emergency department after ending up in [place] and taking a wrong turn. Patient states he was in the [facility] for approximately 1- 2 hours, 7 shortness of breath, and cough, he was placed in isolation there, was given doxycycline and ceftriaxone and dexamethasone. COVID 19 testing was ordered however not run because the patient was leaving their facility. Patient is somewhat of a poor historian, his timeline of events is quite disorganized. His baseline mentation is not known. He states last week he was hospitalized for 4 days at [facility] for shortness of breath, and swelling in his lower extremities. He states he had a heart catheterization during that stay, the results are unknown. He is not sure whether he had pneumonia, thinks that someone told him he had acute congestive heart failure. He was discharged home on Sunday02/01/2020, and he followed up with his PCP on 02/02/2020, he was severely short of breath, and he states his pulse ox was extremely low on room air and his PCP was quite upset that he was discharged home prematurely and without oxygen. He was provided with oxygen, he was sent home. He lives with his brother, he is retired. He is , has adult children. He denies any recent travel other than [place], denies any contacts with any COVID 19 positive people. He states he quit smoking several years ago, did smoke a pack a day for 10 years, not normally on oxygen. Other medical history includes hypertension, hyperlipidemia, coronary artery disease, history of DVT with filter placement. Patient denied any fever or chills, he is coughing up purulent phlegm but no hemoptysis, denied any chest pain, denied any palpitations, lightheadedness or dizziness. He did note increased swelling in his bilateral lower extremities since discharge from the hospital. Chest x-ray completed in the emergency department showed numerous multifocal interstitial and alveolar opacities consideration to multifocal pneumonia, pulmonary hemorrhage or ARDS. Patient's mentation was confused on admission, patient had a neurologic evaluation, brain CT showed abnormal widening of the lateral Raoul interval, and mass effect on the proximal cervical cord just distal to the cerv ical medullary junction, chronic small vessel ischemic changes, and age-related atrophy. His EKG showed sinus rhythm with first-degree AV block possibility of left atrial enlargement, and evidence of septal infarct of undetermined age. Admission lab work showed white blood cell, 7.5, hemoglobin of 10.0, platelet count of 213, lymphocytes of 0.8, coagulation profile was within normal limits, sodium was 140, potassium is 4.7, chloride was 109, CO2 is 25, BUN was 48, creatinine is 1.45, patient states he does have chronic kidney disease, and we are not sure of his baseline GFR. Troponin was negative at 0.012, proBNP was 97745, pro-calcitonin came back at 0.12 only mildly elevated, CRP was 135, urinalysis was negative, rheumatoid factor was 72, influenza screen was negative. She was started on Levaquin and Zosyn, and we're consulted for evaluation of his abnormal chest x-ray showing multifocal airspace disease. Patient was reevaluated today on 02/07/20, feeling a bit better, breathing a bit easier, remains on oxygen at 3 L, O2 sats ration is 94%, chest x-ray is showing definite improvement in his interstitial edema patient remains afebrile over the last 24 hours. Patient had a T-max of 100 on admission and since then has been basically afebrile. CBC today showed normal WBC count continues to have lymphopenia. Electrolytes are normal, renal profile is basically the same, cre atinine is 1.50. Patient is responding quite well to diuretics. And he is empirically on antibiotics. the patient is seen today 02/08/2020 in follow-up on the selective care unit. He is currently sitting up at the bedside. Awake and alert in no acute distress. maintaining O2 saturations in the 90s on 2 L/m per nasal cannula. Afebrile. Hemodynamically stable. Currently with a loose nonproductive cough. blood culture reveals no growth to date. Sputum culture pending. Creatinine 1.61. Continued on vancomycin, cefepime and Levaquin. Remains on IV diuretics. On or 02/09/2020 patient seen in follow-up on selective care unit, he remains in isolation as his COVID 19 testing is still pending at this time, his oxygenation has improved, patient's FiO2 is down to 1 L, and his pulse ox is 100%, he remains on IV diuretics, and he has produced 3000 and the in urine output over the last 24 hours, and he is in -720 ML balance over the last 24 hours, lower extremity edema has improved, and patient started developing some wrinkled skin on bilateral lower extremities. Mycoplasma IgM came back negative at 0.02, blood and sputum cultures showed no growth, lung sounds reveal mild crackles at bilateral bases, improved lung sounds, patient still has a little phlegm production, less congested on today's exam. He remains on combination of cefepime and vancomycin, and infectious disease service is following The patient is seen today 02/10/2020 in follow-up on the selective care unit. Awake and alert in no acute distress. Maintaining O2 saturations up to 100% on room air. He's been afebrile. Hemodynamically stable. Sputum culture reveals no growth. Blood culture reveals no growth. White count 4.9. Hemoglobin 8.9. Creatinine 1.54. Objective - Vital Signs Vital signs: Vital Signs Temp 98.1 F 02/10/20 08:00 Pulse 93 02/10/20 08:00 Resp 18 02/10/20 08:00 BP 108/55 02/10/20 08:00 Pulse Ox 100 02/10/20 08:00 Intake & Output 02/09/20 02/10/20 02/10/20 18:59 06:59 18:59 Intake Total 950 Output Total 1120 1700 Balance -170 -1700 Intake: Intake, IV Titration 350 Amount Cefepime 2 gm In Sodium 100 Chloride 0.9% 100 ml @ 200 mls/hr IVPB Q12HR ROMY Rx#:[id number] Vancomycin 1,500 mg In 250 Sodium Chloride 0.9% 250 ml @ 125 mls/hr IVPB Q16H ROMY Rx#:[id number] Oral 600 Output: Urine 1120 1700 Other: Voiding Method Urinal Urinal # Voids 1 # Bowel Movements 0 - Exam GENERAL EXAM: Alert, pleasant 69-year-old gentleman, on room air, comfortable in no apparent distress. HEAD: Normocephalic. EYES: Normal reaction of pupils, equal size. NOSE: Clear with pink turbinates. THROAT: No erythema or exudates. NECK: No masses, no JVD. CHEST: No chest wall deformity. LUNGS: Equal air entry with no crackles, rhonchi or wheeze.. CVS: S1 and S2 normal with no audible murmur, regular rhythm. ABDOMEN: No hepatosplenomegaly, normal bowel sounds, no guarding or rigidity. SPINE: No scoliosis or deformity SKIN: No rashes CENTRAL NERVOUS SYSTEM: No focal deficits, tone is normal in all 4 extremities. EXTREMITIES: There is no peripheral edema. No clubbing, no cyanosis. Peripheral pulses are intact. - Labs CBC & Chem 7: 02/10/20 05:36 02/10/20 05:36 Labs: Abnormal Lab Results - Last 24 Hours (Table) 02/10/20 02/10/20 Range/Units 05:36 05:36 RBC 3.72 L (4.30-5.90) m/uL Hgb 8.9 L (13.0-17.5) gm/dL Hct 30.2 L (39.0-53.0) % MCH 23.8 L (25.0-35.0) pg MCHC 29.3 L (31.0-37.0) g/dL RDW 19.2 H (11.5-15.5) % Lymphocytes # 0.8 L (1.0-4.8) k/uL Creatinine 1.54 H (0.66-1.25) mg/dL Microbiology - Last 24 Hours (Table) 02/05/20 14:09 Blood Culture - Preliminary Blood No Growth after 96 hours 02/07/20 12:00 Gram Stain - Final Sputum Sputum Culture - Final Assessment and Plan Assessment: #1. Acute exacerbation of systolic congestive heart failure, improving based on the clinical findings and based on the chest x-ray findings. #2. Possible healthcare acquired pneumonia, in view of recent hospitalization at [facility]. Chest x-ray showed numerous multifocal interstitial and alveolar opacities, with consideration for multifocal pneumonia, #3. Recent hospitalization at [facility], according to the patient he was discharged on 02/01/2020, we'll try to obtain records #4. Altered mental status and confusion, patient has been evaluated by neurology, brain CT showed abnormal widening of the lateral Raoul interval, and mass effect on the proximal cervical cord. Neurology tried to obtain records from [facility] before proceeding with carotid Dopplers and MRI of the brain #5. Chronic kidney disease, baseline GFR is unknown #6. Pending test for COVID 19, in view of patient's symptoms of cough and shortness of breath, but no recent history of travel or exposure to COVID 19 positive people #7. Coronary artery disease #8. Hypertension #9. Hyperlipidemia #10. History of DVT with placement of IVC filter, and oral anticoagulation with Xarelto #11. Former smoker, in remission for many years, smoked a pack a day for 10 years Plan: The patient was seen and evaluated by Dr. Brennan He is cleared for discharge from the pulmonary standpoint Complete course of antibiotics Educated to remain in self-isolation. Covid results pending. I, the cosigning physician, performed a history & physical examination of the patient. Lungs sounds clear. Maintaining good O2 saturations in the 90s on room air. I discussed the assessment and plan of care with my nurse practitioner, Nicole Miller. I attest to the above note as dictated by her.
[2020-02-10] MEDS ORDERED: NIFEdipine XL 30 MG TAB.ER.24 PO SCH (12:00)
--- NOTE | 2020-02-10 12:42 | PN ---
PROGRESS NOTE DATE OF SERVICE: 02/10/2020 REASON FOR FOLLOWUP: Pneumonia. INTERVAL HISTORY: The patient is currently afebrile. The patient has been breathing comfortably. The patient denies having any chest pain or shortness of breath. Occasional cough. No nausea, no vomiting. No abdominal pain, no diarrhea. PHYSICAL EXAMINATION: Blood pressure is 130/55 with a pulse of 90, temperature 98.1. He is 100% on room air. General description is an elderly male, lying in bed in no distress. RESPIRATORY SYSTEM: Unlabored breathing, clear to auscultation anteriorly. HEART: S1, S2, regular rate and rhythm. ABDOMEN: Soft, nontender. LABS: Hemoglobin 8.1, white count of 4.9. Creatinine is 1.54. Sputum has usual respiratory jamaal. DIAGNOSTIC IMPRESSION AND PLAN: Patient admitted to hospital with pneumonia, admission concern for possible in view of recent admission to another facility. However, the sputum has been negative pathogen. The patient showed overall clinical improvement on cefepime 25 mg. Oral Ceftin 500 mg twice a day for about a week with close outpatient followup care was discussed with the admitting physician working on discharge. MMODL / IJN: [id number] /
--- NOTE | 2020-02-10 15:08 | P.PN ---
Subjective Progress Note Date: 02/10/20 Patient laying comfortably in the bed. Offers no new complaints. Wants to go home. He is fully dressed. Still awaiting records from [place]. Patient's records from [place] [facility] indicates that [place] [facility] to [employer], appears to be confused, disheveled, denies drug or alcohol use. He had disjointed conversation. Patient had mentioned that over the past 3 weeks, he has been visiting [place] for problems breathing, peripheral edema in the lower limb, was noted to be short of breath on exertion and saturation would decrease while talking for a minute or more. He would cough intermittent. Suspected Covid. Patient's troponin was elevated 47 chest x-ray showed patchy bilateral perihilar and upper lung zone air space opacities which may represent air space disease and pneumonia. Ammonia is normal 13. Electrolytes normal. Renal functions normal, liver panel and lipase normal. CBC with WBC 8.2 hemoglobin 88 and shailesh telets were 15. Lymphocytes are low 0.9. Objective - Vital Signs Vital signs: Vital Signs Temp 98.1 F 02/10/20 08:00 Pulse 93 02/10/20 08:00 Resp 18 02/10/20 08:00 BP 108/55 02/10/20 08:00 Pulse Ox 100 02/10/20 08:00 Intake & Output 02/09/20 02/10/20 02/10/20 18:59 06:59 18:59 Intake Total 950 Output Total 1120 1700 Balance -170 -1700 Intake: Intake, IV Titration 350 Amount Cefepime 2 gm In Sodium 100 Chloride 0.9% 100 ml @ 200 mls/hr IVPB Q12HR ROMY Rx#:[id number] Vancomycin 1,500 mg In 250 Sodium Chloride 0.9% 250 ml @ 125 mls/hr IVPB Q16H ROMY Rx#:[id number] Oral 600 Output: Urine 1120 1700 Other: Voiding Method Urinal Urinal # Voids 1 # Bowel Movements 0 - Exam No change. More alert and awake. Moves all 4 extremities equally. Patient able to walk, got dressed by himself. Denies any headache. Muscle strength equal. Still has peripheral edema. - Labs CBC & Chem 7: 02/10/20 05:36 02/10/20 05:36 Labs: Abnormal Lab Results - Last 24 Hours (Table) 02/10/20 02/10/20 Range/Units 05:36 05:36 RBC 3.72 L (4.30-5.90) m/uL Hgb 8.9 L (13.0-17.5) gm/dL Hct 30.2 L (39.0-53.0) % MCH 23.8 L (25.0-35.0) pg MCHC 29.3 L (31.0-37.0) g/dL RDW 19.2 H (11.5-15.5) % Lymphocytes # 0.8 L (1.0-4.8) k/uL Creatinine 1.54 H (0.66-1.25) mg/dL Microbiology - Last 24 Hours (Table) 02/05/20 14:09 Blood Culture - Preliminary Blood No Growth after 96 hours Assessment and Plan Assessment: * Altered mental status, possible toxic metabolic encephalopathy. * Abnormal brain CT scan, with evidence of old/chronic watershed ischemic strokes in posterior parietal lobes. Rule out carotid stenosis. * Abnormal widening of the lateral dens with mass effect on the proximal cervical cord. Probably due to rheumatoid arthritis. * Rheumatoid arthritis, with elevated rheumatoid factor and CCP antibodies. * Abnormal chest x-ray with evidence of bilateral interstitial infiltrates. Rule out CHF versus pneumonia, highly suspicious for Covid-19. Influenza screen negative. * CHF * Peripheral edema. Plan: * Carotid Doppler showed no hemodynamically significant stenosis seen in either ICA. Arrhythmia documented. * EEG was attempted, but patient declined. This can be done as an outpatient. * 2-D echo showed EF 40-45%. Sinus rhythm, severe concentric LVH, left atrium is severely dilated, moderate aortic regurgitation. Moderate mitral regurgitation. * Hemoglobin A1c 5.5, fasting a.m. lipid panel pending. B12 283, folate 8.8, TSH 2.45, rheumatoid factor +72, CCP antibody also elevated 9.3, consistent with rheumatoid arthritis. Procalcitonin elevated 0.12. Pro-BNP elevated 10,100. * Patient does have history of rheumatoid arthritis. Need to follow-up with a planner intern. He may need an MRI of the cervical spine to further evaluate for abnormality noted on the cervical spine, which is likely related to rheuma toid arthritis. * Continue aspirin 81 mg daily for stroke prevention. * COVID testing still pending. * Neurologically clear for discharge.
[2020-02-10] MEDS: LEVOFLOXACIN 750 MG TAB PO SCH (15:34)
[2020-02-10] MEDS ORDERED: CYANOCOBALAMIN 1,000 MCG/ML 1 ML VIAL IM ONE (15:59)
== END 2020-02-10 15:59 | disposition home or self-care (01) | DRG 193 ==
LOC: EC 13:43 → 3SCARD 16:01
PROVIDERS: ADMIT Internal Medicine; ATTEND Internal Medicine
DX: J18.9 Pneumonia, unspecified organism (principal); G93.41 Metabolic encephalopathy; I50.23 Acute on chronic systolic (congestive) heart failure; J96.01 Acute respiratory failure with hypoxia; R04.89 Hemorrhage from other sites in respiratory passages; N17.9 Acute kidney failure, unspecified; J44.0 Chronic obstructive pulmonary disease with (acute) lower respiratory infection; I13.0 Hypertensive heart and chronic kidney disease with heart failure and stage 1 through stage 4 chronic kidney disease, or unspecified chronic kidney disease; I27.29 Other secondary pulmonary hypertension; D63.1 Anemia in chronic kidney disease; G93.89 Other specified disorders of brain; N18.3 Chronic kidney disease, stage 3 (moderate); I95.9 Hypotension, unspecified; R40.2142 Coma scale, eyes open, spontaneous, at arrival to emergency department; R40.2362 Coma scale, best motor response, obeys commands, at arrival to emergency department; R40.2252 Coma scale, best verbal response, oriented, at arrival to emergency department; I25.10 Atherosclerotic heart disease of native coronary artery without angina pectoris; E78.5 Hyperlipidemia, unspecified; I44.0 Atrioventricular block, first degree; D72.810 Lymphocytopenia; I08.3 Combined rheumatic disorders of mitral, aortic and tricuspid valves; M06.9 Rheumatoid arthritis, unspecified; Y95 Nosocomial condition; I49.1 Atrial premature depolarization; Z20.828 Contact with and (suspected) exposure to other viral communicable diseases; Z79.899 Other long term (current) drug therapy; Z79.82 Long term (current) use of aspirin; Z79.01 Long term (current) use of anticoagulants; Z86.711 Personal history of pulmonary embolism; Z95.828 Presence of other vascular implants and grafts; Z87.891 Personal history of nicotine dependence; Z86.718 Personal history of other venous thrombosis and embolism; Z98.890 Other specified postprocedural states; Z86.73 Personal history of transient ischemic attack (TIA), and cerebral infarction without residual deficits; Z82.49 Family history of ischemic heart disease and other diseases of the circulatory system
CPT/HCPCS: 36415; 70450; 71045; 71046; 80051; 80053; 80202; 81003; 82550; 82565; 82607; 82746; 83036; 83605; 83735; 83880; 84145; 84443; 84484; 85025; 85610; 85730; 86140; 86200; 86431; 86738; 87040; 87070; 87205; 87449; 87502; 93005; 93306; 93880; 94640; 94760; 96365; 99285